=== PATIENT | male | born 1940 ===

== ENCOUNTER 2016-07-24 09:02 | Emergency (ER) | payer MEDICARE, OTHER ==
[2016-07-24 09:16] VITALS: TEMP 98.4; O2SAT 99; BMI 24.0
--- NOTE | 2016-07-24 09:40 | ED PDOC ---
Arrival/HPI - General Time Seen by Provider: 07/24/16 09:19 Historian: Patient - History of Present Illness Narrative History of Present Illness (Text): 07/24/16 09:37 76yo male with PMHx of hypertension, CAD, hydrocephalus BIBA for complaint of clear productive cough x 4days. The by the side states patient was seen by the PMD for the cough and given Robitussin. states taking it without relieve. She reports tactile fever usually at night. Denies chest pain, SOB, FLETCHER, LE edema, night sweats, sick contact, travel. Past Medical History - Travel History Have you recently traveled outside [place] w/in the past 3 mons?: Yes Family/Social History - Physician Review Nursing Documentation Reviewed: Yes Family/Social History: Unknown Family HX Allergies/Home Meds Allergies/Adverse Reactions: Allergies No Known Allergies Allergy (Verified 07/24/16 09:20) Review of Systems - Physician Review All systems were reviewed & negative as marked: Yes - Review of Systems Constitutional: Normal Eyes: Normal ENT: Normal Respiratory: Cough, Sputum. absent: Wheezing Cardiovascular: Normal Gastrointestinal: Normal Genitourinary Male: Normal Musculoskeletal: Normal Skin: Normal Neurological: Normal Endocrine: Normal Hemo/Lymphatic: Normal Psychiatric: Normal Physical Exam Vital Signs Reviewed: Yes Vital Signs Temp Pulse Resp BP Pulse Ox 07/24/16 09:14 98.4 F 62 18 150/79 99 Temperature: Afebrile Blood Pressure: Normal Pulse: Regular Respiratory Rate: Normal Appearance: Positive for: Well-Appearing, Non-Toxic, Comfortable Pain Distress: None Mental Status: Positive for: Alert and Oriented X 3 - Systems Exam Head: Present: Atraumatic, Normocephalic Pupils: Present: PERRL Extroacular Muscles: Present: EOMI Conjunctiva: Present: Normal Mouth: Present: Moist Mucous Membranes Neck: Present: Normal Range of Motion Respiratory/Chest: Present: Clear to Auscultation, Good Air Exchange. No: Respiratory Distress, Accessory Muscle Use, Wheezes, Decreased Breath Sounds, Rales, Retracting, Rhonchi Cardiovascular: Present: Regular Rate and Rhythm, Normal S1, S2. No: Murmurs Abdomen: Present: Normal Bowel Sounds. No: Tenderness, Distention, Peritoneal Signs Back: Present: Normal Inspection Upper Extremity: Present: Normal Inspection. No: Cyanosis, Edema Lower Extremity: Present: Normal Inspection. No: Edema Neurological: Present: GCS=15, CN II-XII Intact, Speech Normal Skin: Present: Warm, Dry, Normal Color. No: Rashes Psychiatric: Present: Alert, Oriented x 3, Normal Insight, Normal Concentration Medical Decision Making ED Course and Treatment: 07/24/16 10:19 Pt biba for cough x 4days. He was afebrile and hemodynamically stable on presentation. His lung was CTA b/l. Chest xray NAD PT was treated with albuterol and antitussive in ED. Will DC home with Promethazine and albuterol. Referred to his PMD. TRT ED for any new or worsening symptoms. - RAD Interpretation Radiology Orders: 07/24/16 09:20 CHEST TWO VIEWS (PA/LAT) [RAD] Stat - Medication Orders Current Medication Orders: Discontinued Medications Albuterol Sulfate (Albuterol 0.083% Inhal Kusum (2.5 Mg/3 Ml) Ud) 2.5 mg IH STAT STA Stop: 07/24/16 09:49 Last Admin: 07/24/16 10:04 Dose: 2.5 mg Promethazine HCl/Codeine (Phenergan/Codeine Oral Syrup) 5 ml PO STAT STA Stop: 07/24/16 09:49 Last Admin: 07/24/16 10:03 Dose: 5 ml Disposition/Present on Arrival - Present on Arrival Any Indicators Present on Arrival: No History of DVT/PE: No History of Uncontrolled Diabetes: No Urinary Catheter: No History of Decub. Ulcer: No History Surgical Site Infection Following: None - Disposition Have Diagnosis and Disposition been Completed?: Yes Diagnosis: Cough Disposition: HOME/ ROUTINE Disposition Time: 10:25 Patient Plan: Discharge Condition: STABLE Discharge Instructions (ExitCare): Acute Cough (ED) Additional Instructions: Follow up with your doctor Return to ED for any new or worsening symptoms Prescriptions: Albuterol HFA [Ventolin HFA 90 mcg/actuation (8 g)] 2 puff IH [id number] #1 puff Promethazine DM [Phenergan DM Oral Syrup] 5 ml PO Q6 #120 dose Referrals: Joyce Orellana MD [Primary Care Provider] - Follow up with primary
[2016-07-24] MEDS ORDERED: Promethazine/Cod 6.25mg-10mg/5ml Syr UD PO STA (09:48)
[2016-07-24] MEDS ORDERED: Albuterol 0.083% Inhal Sol (2.5 mg/3 mL) UD IH STA (09:48)
--- NOTE | 2016-07-24 09:56 | RAD ---
HISTORY: cough COMPARISON: No prior. TECHNIQUE: Chest PA and lateral FINDINGS: LUNGS: No active pulmonary disease. PLEURA: No significant pleural effusion identified. No pneumothorax apparent. CARDIOVASCULAR: Normal. OSSEOUS STRUCTURES: No significant abnormalities. VISUALIZED UPPER ABDOMEN: Normal. OTHER FINDINGS: Sternal wires IMPRESSION: No active disease.
[2016-07-24 11:15] VITALS: BP 148/72; PULSE 61; RESP 17
== END 2016-07-24 11:16 | disposition home or self-care (01) ==
LOC: ED 09:02
DX: R05 Cough (principal)

== ENCOUNTER 2016-09-13 11:09 | Observation (INO) | payer MEDICARE, MEDICAID ==
--- NOTE | 2016-09-13 11:31 | ED PDOC ---
Arrival/HPI - General Chief Complaint: Headache Time Seen by Provider: 09/13/16 11:16 Historian: Patient, Family - History of Present Illness Narrative History of Present Illness (Text): 09/13/16 11:28 Patient is a 76 yo male past medical hx of cad, htn, hydrocephalus, "bloot clot to brain" (as per ), presents to ED for persistent headache and dizziness after sustaining a fall on September 08 in the [facility]. Patient cannot recollect what made him fall several days ago, although states he "fell forward" and that he lost consciousness for several minutes. No associated nausea or visual symptoms. No change in behavior. No neck pain or extremity pain. Denies numbness. Reports dizziness. Denies chest pain or shortness of breath. Patient did not get evaluated by any medical personnel after sustaining fall several days ago. Time/Duration: Other (5 days ago) Symptom Onset: Sudden Past Medical History - Infectious Disease Hx of Infectious Diseases: None - Cardiac Hx Hypotension: Yes - Neurological Hx Headaches: Yes Other/Comment: hydrocephalis. blood clot on brain/removed - Psychiatric Hx Substance Use: No - Surgical History Other/Comment: Blood clot removed from brain. Left knee surgery. bypass surgery Family/Social History Family/Social History: Unknown Family HX Smoking Status: Unknown If Ever Smoked Hx Alcohol Use: No Hx Substance Use: No Allergies/Home Meds Allergies/Adverse Reactions: Allergies No Known Allergies Allergy (Verified 09/13/16 11:26) Home Medications: Home Meds Medication Instructions Recorded Confirmed Aspirin [Aspirin EC] 325 mg PO DAILY 09/13/16 09/13/16 Atorvastatin [Lipitor] 10 mg PO DAILY 09/13/16 09/13/16 Memantine [Namenda] 5 mg PO DAILY 09/13/16 09/13/16 Metoprolol Tartrate [Lopressor] 25 mg PO DAILY 09/13/16 09/13/16 Naproxen [Naprosyn] 500 mg PO DAILY 09/13/16 09/13/16 Oxcarbazepine [Trileptal] 600 mg PO BID 09/13/16 09/13/16 amLODIPine [Norvasc] 5 mg PO DAILY 09/13/16 09/13/16 Review of Systems - Review of Systems Constitutional: Fatigue. absent: Fevers Eyes: absent: Vision Changes ENT: absent: Hearing Changes Respiratory: absent: SOB, Cough Cardiovascular: absent: Chest Pain, FLETCHER Gastrointestinal: absent: Abdominal Pain Genitourinary Male: absent: Dysuria, Hematuria Musculoskeletal: absent: Back Pain, Neck Pain Skin: absent: Rash Neurological: Headache, Dizziness, Disequilibrium. absent: Focal Weakness, Speech Changes, Facial Droop, Seizure Endocrine: absent: Polydipsia Hemo/Lymphatic: absent: Easy Bleeding Physical Exam Vital Signs Reviewed: Yes Vital Signs Temp Pulse Resp BP Pulse Ox 09/13/16 15:45 56 L 18 150/73 99 09/13/16 15:11 97.7 F 62 18 156/84 H 09/13/16 11:29 97.7 F 62 18 156/84 H 100 09/13/16 11:22 97.8 F 61 18 171/95 H 98 Temperature: Afebrile Appearance: Positive for: Well-Appearing, Non-Toxic Pain Distress: Mild Mental Status: Positive for: Alert and Oriented X 3 - Systems Exam Head: Present: Atraumatic, Normocephalic. No: Tenderness, Contusion, Swelling, Ecchymosis, Abrasion, Laceration Pupils: Present: PERRL Extroacular Muscles: Present: EOMI Mouth: Present: Moist Mucous Membranes Pharnyx: No: ERYTHEMA Nose (Internal): Present: Normal Inspection Neck: Present: Normal Range of Motion. No: Meningeal Signs Respiratory/Chest: Present: Clear to Auscultation. No: Respiratory Distress Cardiovascular: Present: Regular Rate and Rhythm Abdomen: Present: Normal Bowel Sounds. No: Tenderness Back: No: CVA Tenderness, Midline Tenderness Upper Extremity: Present: NORMAL PULSES. No: Cyanosis, Edema Lower Extremity: Present: NORMAL PULSES, Neurovascularly Intact. No: Edema, CALF TENDERNESS Neurological: Present: GCS=15, CN II-XII Intact, Speech Normal, Motor Func Grossly Intact, Normal Sensory Function, Normal 2Pt Descrimination Skin: Present: Warm Psychiatric: Present: Alert Medical Decision Making ED Course and Treatment: 09/13/16 11:55 Patient is 76 yo male presents with family reportedly had fall with head injury and LOC several days ago. This occurred in the [facility], patient did not seek medical attention. [place], has had persistent headaches and dizziness, now presents for evaluation. Family describes prior hx of "hydrocephalus" and "blood clot to the brain". Currently denies any chest pain or sob. No focal weakness noted. Plan to obtain Head CT, labs, EKG, serial exams. Report Date : 09/13/2016 12:13:02 PROCEDURE: CT HEAD WITHOUT CONTRAST. Dictator : Jozef Middleton MD IMPRESSION: No intracranial mass, hemorrhage or evidence of acute infarct. Possible communicating hydrocephalus. Mild chronic periventricular white matter ischemic change. Questionable air-fluid level in the sphenoid sinus. This may indicate acute sinusitis and correlation with clinical exam is suggested. Report Date : 09/13/2016 13:23:56 PROCEDURE: CHEST RADIOGRAPH, 1 VIEW Dictator : Roly Harrington MD IMPRESSION: No active disease. Patient re-examined, states headache improved. No fever. No facial swelling. No history of cough or URI symptoms. Medication list reviewed, patient has had prior history of seizures "since blood clot in brain" but none recently. states that when patient passed out she did not witness any seizure activity or postictal symptoms. No incontinence. Patient with no recollection of his episode, states he did not trip and fall or have any preceding symptoms. Plan is to admit patient for serial neurological exams given syncopal episode, and history of hydrocephalus. Discussed with on-call physician Dr. Garzon, accepts admission with consultation with neurology. I discussed treatment plan, ct findings, in depth with patient and family, they are agreeable to treatment plan. 09/13/16 19:22 UTI noted on subsequent review of labs. Patient afebrile, denies abdominal or back pain, denies urinary symptoms. IV rocephin ordered. - Lab Interpretations Lab Results: 09/13/16 12:30 09/13/16 12:30 Lab Results 09/13/16 13:40: Urine Color Light yellow, Urine Appearance Cloudy, Urine pH 6.5 , Ur Specific [place] 1.010, Urine Protein Trace H, Urine Glucose (UA) Negative , Urine Ketones Negative, Urine Blood Trace-intact H, Urine Nitrate Negative, Urine Bilirubin Negative, Urine Urobilinogen 0.2, Ur Leukocyte Esterase Large H , Urine RBC 0 - 2, Urine WBC Tntc, Ur Epithelial Cells 0 - 2, Urine Bacteria Mod 09/13/16 12:30: Triglycerides 261 H, Cholesterol 183, LDL Cholesterol Direct 106 , HDL Cholesterol 46 09/13/16 12:30: Sodium 136, Potassium 3.6, Chloride 98, Carbon Dioxide 30, Anion Gap 12, BUN 12, Creatinine 0.8, Est GFR ( Amer) > 60, Est GFR (Non- Af Amer) > 60, Random Glucose 69 L, Calcium 9.0, Total Bilirubin 0.5, AST 30, ALT 39, Alkaline Phosphatase 63, Lactate Dehydrogenase 531, Total Creatine Kinase 145, Troponin I 0.02, Total Protein 7.7, Albumin 4.4, Globulin 3.3, Albumin/Globulin Ratio 1.3 09/13/16 12:30: PT 10.3, INR 0.95, APTT 27.8 09/13/16 12:30: WBC 8.4, RBC 4.86, Hgb 13.9 L, Hct 41.1 L, MCV 84.6, MCH 28.6, MCHC 33.8, RDW 13.8, Plt Count 204, MPV 8.4, Gran % 56.0, Lymph % (Auto) 33.6, Bowman % (Auto) 7.2 H, Eos % (Auto) 2.8, Baso % (Auto) 0.4, Gran # 4.69, Lymph # 2.8, Bowman # 0.6, Eos # 0.2, Baso # 0.03 09/13/16 11:57: POC Glucose (mg/dL) 82 - RAD Interpretation Radiology Orders: 09/13/16 11:27 HEAD W/O CONTRAST [CT] Stat CHEST ONE VIEW [RAD] Stat - EKG Interpretation EKG Interpretation (Text): 09/13/16 19:20 EKG at 12:02 sinus bradycardia rate of 59 Interpreted by ED Physician: Yes Type: 12 lead EKG - Medication Orders Current Medication Orders: Acetaminophen/Butalbital/Caffeine (Fioricet) 1 tab PO Q6H PRN PRN Reason: Headache Amlodipine Besylate (Norvasc) 5 mg PO DAILY [facility] Last Admin: 09/13/16 18:45 Dose: 5 mg Aspirin (Ecotrin) 325 mg PO DAILY [facility] Last Admin: 09/13/16 18:40 Dose: 325 mg Atorvastatin Calcium (Lipitor) 10 mg PO DAILY [facility] Ceftriaxone Sodium (Rocephin 1 Gram Ivpb) 1 gm in 100 mls @ 100 mls/hr IVPB DAILY [facility] PRN Reason: Protocol Last Admin: 09/13/16 18:40 Dose: 100 mls/hr Memantine (Namenda) 5 mg PO DAILY [facility] Last Admin: 09/13/16 18:40 Dose: 5 mg Metoprolol Tartrate (Lopressor) 25 mg PO DAILY [facility] Last Admin: 09/13/16 18:44 Dose: 25 mg Naproxen (Anaprox Ds) 550 mg PO DAILY PRN PRN Reason: Pain, Mild (1-3) Oxcarbazepine (Trileptal) 600 mg PO BID [facility] PRN Reason: Protocol Last Admin: 09/13/16 18:40 Dose: 600 mg Discontinued Medications Pneumococcal Polyvalent Vaccine (Pneumovax 23 Vaccine) 0.5 ml IM .ONCE ONE Stop: 09/13/16 15:26 Last Admin: 09/13/16 15:51 Dose: 0.5 ml Disposition/Present on Arrival - Present on Arrival Any Indicators Present on Arrival: No History of DVT/PE: No History of Uncontrolled Diabetes: No Urinary Catheter: No History of Decub. Ulcer: No History Surgical Site Infection Following: None - Disposition Have Diagnosis and Disposition been Completed?: Yes Diagnosis: Syncope, Hydrocephalus, UTI (urinary tract infection) Disposition: HOSPITALIZED Disposition Time: 14:00 Patient Plan: Admission, Telemetry Patient Problems: Current Active Problems Problem Status Onset Hydrocephalus Acute Syncope Acute UTI (urinary tract infection) Acute Condition: FAIR
--- NOTE | 2016-09-13 12:18 | CT ---
PROCEDURE: CT HEAD WITHOUT CONTRAST. HISTORY: headache, loc COMPARISON: None available. TECHNIQUE: Axial computed tomography images were obtained through the head/brain without intravenous contrast. Radiation dose: Total exam DLP = 871.01 mGy-cm. This CT exam was performed using one or more of the following dose reduction techniques: Automated exposure control, adjustment of the mA and/or kV according to patient size, and/or use of iterative reconstruction technique. FINDINGS: HEMORRHAGE: No intracranial hemorrhage. BRAIN: No mass effect or edema. Moderate diffuse atrophy consistent with patient age. Mild periventricular white matter lucency consistent with chronic microvascular ischemic change. VENTRICLES: Ventricular dilatation mildly at a portion to the degree of surrounding atrophy. There is dilatation of the 3rd and lateral ventricles. Findings may reflect communicating hydrocephalus. There is only mild dilatation of the temporal horn of right lateral ventricle. The left temporal horn is not dilated. Significance of this finding is uncertain. There is no midline shift. CALVARIUM: Old right frontal craniotomy. No acute fracture. PARANASAL SINUSES: Mucosal thickening in the sphenoid sinus. Questionable air-fluid level in sphenoid sinus may indicate acute sinusitis. Please correlate clinically. MASTOID AIR CELLS: Unremarkable as visualized. No inflammatory changes. OTHER FINDINGS: None. IMPRESSION: No intracranial mass, hemorrhage or evidence of acute infarct. Possible communicating hydrocephalus. Mild chronic periventricular white matter ischemic change. Questionable air-fluid level in the sphenoid sinus. This may indicate acute sinusitis and correlation with clinical exam is suggested.
[2016-09-13 12:44] LABS: BASO # 0.03 K/mm3 (0.0-2.0); BASO % 0.4 % (0.0-3.0); EOS # 0.2 (0.0-0.7); EOS % 2.8 % (1.5-5.0); GRAN # 4.69 (1.4-6.5); HEMOGLOBIN 13.9 gm/dL (14.0-18.0); LYMPH # 2.8 (1.2-3.4); LYMPH % 33.6 % (22.0-35.0); MEAN CELL VOLUME 84.6 fL (80.0-105.0); MEAN CORPUSCULAR HEMOGLOBIN 28.6 pg (25.0-35.0); MEAN CORPUSCULAR HGB CONC 33.8 g/dl (31.0-37.0); MEAN PLATELET VOLUME 8.4 fl (7.0-11.0); MONO # 0.6 (0.1-0.6); MONO % 7.2 % (1.0-6.0); PLATELET COUNT 204 10^3/uL (120.0-450.0); RBC 4.86 10^6/uL (3.5-6.1); RED CELL DISTRIBUTION WIDTH 13.8 % (11.5-14.5); WHITE BLOOD COUNT 8.4 10^3/ul (4.5-11.0)
[2016-09-13 12:52] LABS: INR 0.95 (0.93-1.08); PARTIAL THROMBOPLASTIN TIME 27.8 Seconds (23.7-30.8); PROTHROMBIN TIME 10.3 Seconds (9.9-11.8)
[2016-09-13 12:59] LABS: ALB/GLOB RATIO 1.3 (1.1-1.8); ALBUMIN 4.4 g/dL (3.0-4.8); ALT/SGPT 39 U/L (7-56); AST/SGOT 30 U/L (15-59); BLOOD UREA NITROGEN 12 mg/dL (7-21); GFR AFRICAN-AMERICAN > 60; GFR NON-AFRICAN AMERICAN > 60
[2016-09-13 13:11] LABS: TROPONIN I 0.02 ng/mL
--- NOTE | 2016-09-13 13:25 | RAD ---
PROCEDURE: CHEST RADIOGRAPH, 1 VIEW HISTORY: headache, loc COMPARISON: None available. FINDINGS: LUNGS: Clear. PLEURA: No pneumothorax or pleural fluid seen. CARDIOVASCULAR: Normal. OSSEOUS STRUCTURES: No significant abnormalities. VISUALIZED UPPER ABDOMEN: Normal. OTHER FINDINGS: None. IMPRESSION: No active disease.
[2016-09-13 13:50] LABS: PH,URINE 6.5 (4.7-8.0); URINE BILIRUBIN NEGATIVE (NEGATIVE); URINE BLOOD TRACE-INTACT (NEGATIVE); URINE GLUCOSE (UA) NEGATIVE (NEGATIVE); URINE LEUKOCYTE ESTERASE LARGE Leu/uL (NEGATIVE); URINE NITRATE NEGATIVE (NEGATIVE); URINE PROTEIN TRACE mg/dL (<30 mg/dL); URINE UROBILINOGEN 0.2 E.U./dL (<1 E.U./dL)
[2016-09-13 13:51] LABS: URINE APPEARANCE CLOUDY (CLEAR); URINE COLOR LIGHT YELLOW (YELLOW)
[2016-09-13 14:08] LABS: URINE BACTERIA MOD (NEG); URINE EPITHELIAL CELLS 0 - 2 /hpf (0-5); URINE RBC 0 - 2 /hpf (0-2); URINE WBC TNTC /hpf (0-6)
[2016-09-13 15:25] VITALS: BMI 24.2
[2016-09-13] MEDS ORDERED: Pneumococcal 23-Valent Vaccine IM ONE (15:25)
--- NOTE | 2016-09-13 17:13 | CP.PCM.CON ---
<Yunier Marvin - Last Filed: 09/13/16 17:00> History of Present Illness - History of Present Illness History of Present Illness: PGY-[address] Gonzalez's Neurology Service: Reason for Consultation:Syncope This is a 76 year old male with PMHx CAD s/p CABG, Hydrocephalus, HTN, hypercholesterolemia who presented to the hospital for evaluation after sustaining a fall on 09/08/16 while in the [facility]. According to the ED note, the stated that the patient fell forward and had LOC for several minutes. Patient himself stated that he was getting up to use the bathroom when he felt dizzy and unbalanced. He states that he fell and did not have LOC at the time. He denies CP, palpitations, weakness, numbing, or tingling at the time. Patient does not have any complaints presently and denied the aforementioned symptoms at time of encounter. Patient also reports that he does not have a headache. Patient reports chronic issues with memory. PMHx: CAD s/p CABG, hydrocephalus, HTN, hypercholesterolemia. As per EMR, stated that he had "a blood clot" in the brain with surgery to remove it. PSHx: CABG, Unspecified left knee surgery Allergies: NKDA Social: Former smoker began at age 17. Drinks socially. Denies drug use. Review of Systems - Constitutional Constitutional: absent: Headache, Weakness - EENT Eyes: absent: Change in Vision Ears: absent: Decreased Hearing - Cardiovascular Cardiovascular: absent: Chest Pain, Syncope - Respiratory Respiratory: absent: Dyspnea - Gastrointestinal Gastrointestinal: absent: Abdominal Pain - Genitourinary Genitourinary: absent: Dysuria - Musculoskeletal Musculoskeletal: absent: Neck Pain - Neurological Neurological: Memory Loss (chronic). absent: Dizziness, Headaches, Weakness Past Patient History - Infectious Disease Hx of Infectious Diseases: None - Past Social History Smoking Status: Never Smoked - CARDIAC Hx Hypercholesterolemia: Yes Hx Hypertension: Yes Other/Comment: triple bypass sx 2000 - NEUROLOGICAL Hx Neurological Disorder: (headaches) Other/Comment: hydrocephalis. blood clot on brain/removed 2008 - INTEGUMENTARY Other/Comment: surgical scar med chest, multiple surgical scar from triple bypass sx to right inner leg, scars from varicose vein sx both legs - MUSCULOSKELETAL/RHEUMATOLOGICAL Hx Falls: Yes (fell 09/08/16) - PSYCHIATRIC Hx Substance Use: No - SURGICAL HISTORY Other/Comment: Blood clot removed from brain 2008. Left knee surgery due to fx playing baseball has screw, triple bypass 2000, sx for varicose veins both legs Meds Allergies/Adverse Reactions: Allergies Allergy/AdvReac Type Severity Reaction Status Date / Time No Known Allergies Allergy Verified 09/13/16 11:26 Physical Exam - Constitutional Appears: Non-toxic, No Acute Distress - Head Exam Head Exam: ATRAUMATIC, NORMAL INSPECTION, NORMOCEPHALIC - Eye Exam Eye Exam: EOMI, PERRL - ENT Exam ENT Exam: Mucous Membranes Moist - Respiratory Exam Respiratory Exam: Clear to Auscultation Bilateral - Cardiovascular Exam Cardiovascular Exam: REGULAR RHYTHM - GI/Abdominal Exam GI & Abdominal Exam: Normal Bowel Sounds, Soft - Neurological Exam Neurological exam: Abnormal Gait (swaying gait), Alert, CN II-XII Intact, Oriented x3 - Expanded Neurological Exam Expanded Cranial nerves: EOM's Intact: Normal, Facial Sensation: Normal, Tongue Deviation : Normal Cerebellar Function: Finger to Nose: Normal, Romberg: Normal Upper motor neuron: Babinski Sign: Normal, Pronator Drift: Normal Sensory exam: Lower Extremity Light Touch: Normal, Upper Extremity Light Touch: Normal Neuro motor strength exam: Left Upper Extremity: 5, Right Upper Extremity: 5, Left Lower Extremity: 5, Right Lower Extremity: 5 DTR: Achilles Tendon Left: 1+, Achilles Tendon Right: 1+, Bicep Left: 1+, Bicep Right: 1+, Brachioradialis Left: 1+, Brachioradialis Right: 1+, Patellar Left: 1 +, Patellar Right: 1+, Tricep Left: 1+, Tricep Right: 1+ - Skin Skin Exam: Intact Results - Vital Signs Recent Vital Signs: Last Vital Signs Temp 97.7 F 09/13/16 15:11 Pulse 56 L 09/13/16 15:45 Resp 18 09/13/16 15:45 BP 150/73 09/13/16 15:45 Pulse Ox 99 09/13/16 15:45 - Labs Result Diagrams: 09/13/16 12:30 09/13/16 12:30 Assessment & Plan - Assessment and Plan (Free Text) Assessment: This is a 76 year old male with PMHx CAD s/p CABG, Hydrocephalus, HTN, hypercholesterolemia who presented to the hospital for evaluation after sustaining a fall on 09/08/16. This is likely due to unsteady gait secondary to hydrocephalus, but patient is neurologically stable in terms of muscle strength and sensory exam. Plan: 1) Recommend PT evaluation for unsteady gait. 2) Head CT revealed dilated ventricles indicating possible communicating hydrocephalus. 3) Patient is presently neurologically stable in terms of muscle strength and sensory exam. 4) Hydrocephalus will need to be monitored with serial MRI every 6 months. 5) Fioricet 1 tab Q6H PRN headache Case Discussed with Dr. Carlos Marvin, PGY-1 - Date & Time Date: 09/13/16 Time: 17:00 <John Gonzalez - Last Filed: 09/14/16 16:17> Meds - Medications Medications: Current Medications Acetaminophen/Butalbital/Caffeine (Fioricet) 1 tab PO Q6H PRN PRN Reason: Headache Amlodipine Besylate (Norvasc) 5 mg PO DAILY [facility] Last Admin: 09/14/16 09:06 Dose: 5 mg Aspirin (Ecotrin) 325 mg PO DAILY [facility] Last Admin: 09/14/16 09:06 Dose: 325 mg Atorvastatin Calcium (Lipitor) 10 mg PO DAILY [facility] Last Admin: 09/14/16 09:07 Dose: 10 mg Ceftriaxone Sodium (Rocephin 1 Gram Ivpb) 1 gm in 100 mls @ 100 mls/hr IVPB DAILY [facility] PRN Reason: Protocol Last Admin: 09/14/16 09:08 Dose: 100 mls/hr Memantine (Namenda) 5 mg PO DAILY [facility] Last Admin: 09/14/16 09:07 Dose: 5 mg Metoprolol Tartrate (Lopressor) 25 mg PO DAILY [facility] Last Admin: 09/14/16 09:06 Dose: 25 mg Naproxen (Anaprox Ds) 550 mg PO DAILY PRN PRN Reason: Pain, Mild (1-3) Oxcarbazepine (Trileptal) 600 mg PO BID [facility] PRN Reason: Protocol Last Admin: 09/14/16 09:07 Dose: 600 mg Results - Vital Signs Recent Vital Signs: Last Vital Signs Temp 98.2 F 09/14/16 06:00 Pulse 54 L 09/14/16 14:00 Resp 20 09/14/16 06:00 BP 139/79 09/14/16 09:06 Pulse Ox 96 07/07/17 06:00 - Labs Result Diagrams: 09/14/16 05:30 09/14/16 05:30 Labs: Laboratory Results - last 24 hr 09/14/16 09/14/16 09/14/16 05:30 05:30 05:30 WBC RBC Hgb Hct MCV MCH MCHC RDW Plt Count MPV Sodium 136 Potassium 3.5 L Chloride 98 Carbon Dioxide 26 Anion Gap 16 BUN 16 Creatinine 0.8 Est GFR ( Amer) > 60 Est GFR (Non-Af Amer) > 60 Random Glucose 106 Hemoglobin A1c 6.0 Calcium 9.0 Magnesium 2.2 Total Bilirubin 0.3 AST 27 ALT 44 Alkaline Phosphatase 74 Total Protein 7.5 Albumin 4.5 Globulin 3.1 Albumin/Globulin Ratio 1.5 Free T4 0.97 TSH 3rd Generation 1.46 09/14/16 05:30 WBC 10.5 D RBC 5.15 Hgb 14.4 Hct 43.1 MCV 83.7 MCH 28.0 MCHC 33.4 RDW 13.8 Plt Count 203 MPV 8.4 Sodium Potassium Chloride Carbon Dioxide Anion Gap BUN Creatinine Est GFR ( Amer) Est GFR (Non-Af Amer) Random Glucose Hemoglobin A1c Calcium Magnesium Total Bilirubin AST ALT Alkaline Phosphatase Total Protein Albumin Globulin Albumin/Globulin Ratio Free T4 TSH 3rd Generation Attending/Attestation - Attestation I have personally seen and examined this patient.: Yes I have fully participated in the care of the patient.: Yes I have reviewed all pertinent clinical information: Yes
[2016-09-13] MEDS ORDERED: Apap-Butalbital-Caffeine 325-50-40mg Tab PO PRN (17:53)
[2016-09-13] MEDS ORDERED: Naproxen 550 mg Tab PO PRN (18:09)
[2016-09-13 18:27] LABS: HDL CHOLESTEROL 46 mg/dL (29-60)
[2016-09-13 18:38] LABS: LDL CHOLESTEROL 106 mg/dL (0-129)
[2016-09-13] MEDS: cefTRIAXone 1 gm 1 GM/100 ML BAG IVPB SCH (18:40)
[2016-09-13] MEDS: Aspirin 325 mg EC Tablets PO SCH (18:40)
[2016-09-14 00:06] VITALS: RESP 20
[2016-09-14 06:16] VITALS: O2SAT 96
[2016-09-14 07:10] LABS: HEMOGLOBIN 14.4 gm/dL (14.0-18.0); MEAN CELL VOLUME 83.7 fL (80.0-105.0); MEAN CORPUSCULAR HGB CONC 33.4 g/dl (31.0-37.0); MEAN PLATELET VOLUME 8.4 fl (7.0-11.0); RBC 5.15 10^6/uL (3.5-6.1); RED CELL DISTRIBUTION WIDTH 13.8 % (11.5-14.5); WHITE BLOOD COUNT 10.5 10^3/ul (4.5-11.0)
[2016-09-14 07:29] LABS: ALB/GLOB RATIO 1.5 (1.1-1.8); ALBUMIN 4.5 g/dL (3.0-4.8); ALT/SGPT 44 U/L (7-56); AST/SGOT 27 U/L (15-59); BLOOD UREA NITROGEN 16 mg/dL (7-21); GFR AFRICAN-AMERICAN > 60; GFR NON-AFRICAN AMERICAN > 60; MAGNESIUM 2.2 mg/dL (1.7-2.2)
[2016-09-14 07:40] LABS: FREE T4 0.97 ng/dL (0.78-2.19)
[2016-09-14] MEDS: Aspirin 325 mg EC Tablets PO SCH (09:06)
[2016-09-14] MEDS: cefTRIAXone 1 gm 1 GM/100 ML BAG IVPB SCH (09:08)
--- NOTE | 2016-09-14 10:12 | CARD ---
APPROVED REPORT EKG Measurement Heart [id number] <Conclusion> Sinus bradycardia Otherwise normal ECG
--- NOTE | 2016-09-14 11:53 | US ---
PROCEDURE: Bilateral carotid artery duplex ultrasound HISTORY: Carotid stenosis PHYSICIAN(S): Jozef Farmer MD. TECHNIQUE: Duplex sonography and color-flow Doppler were used to evaluate the carotid bifurcations and limited segments of the vertebral arteries bilaterally. FINDINGS: There is mild smooth heterogeneous echogenic plaque noted at the carotid bifurcations bilaterally. The peak systolic velocity in the proximal right internal carotid artery is 45 cm/sec. This corresponds to a 20 to 39% proximal right ICA stenosis. Normal systolic velocities are noted in the proximal right external carotid artery. There is antegrade flow in the right vertebral artery. The peak systolic velocity in the proximal left internal carotid artery is 61 cm/sec. This corresponds to a 20 to 39% proximal left ICA stenosis. Normal systolic velocities are noted in the proximal left external carotid artery. There is antegrade flow in the left vertebral artery. IMPRESSION: 1. Bilateral 20-39% proximal ICA stenoses. 2. Antegrade flow in both vertebral arteries.
[2016-09-14 18:24] VITALS: BP 136/76; PULSE 60; TEMP 97.6
== END 2016-09-14 20:10 | disposition home or self-care (01) ==
LOC: ED 11:09 → ERH 13:59 → 2RSO 16:01
PROVIDERS: ADMIT Internal Medicine; ATTEND Internal Medicine
DX: R55 Syncope and collapse (principal); G91.9 Hydrocephalus, unspecified; N39.0 Urinary tract infection, site not specified; I10 Essential (primary) hypertension; E78.00 Pure hypercholesterolemia, unspecified; I25.10 Atherosclerotic heart disease of native coronary artery without angina pectoris; Z95.1 Presence of aortocoronary bypass graft; Z87.891 Personal history of nicotine dependence; Z79.82 Long term (current) use of aspirin; Z23 Encounter for immunization
CPT/HCPCS: 36415; 70450; 71010; 80053; 80061; 81001; 82550; 82948; 83036; 83615; 83735; 84439; 84443; 84484; 85025; 85027; 85610; 85730; 90732; 93005; 93880; 97116; 97161; 99285; G0009; G0378; G8978; G8979; G8980; J0696

== ENCOUNTER 2017-05-14 13:40 | Emergency (ER) | payer MEDICAID, MEDICARE ==
[2017-05-14 14:04] VITALS: BMI 24.7
--- NOTE | 2017-05-14 14:10 | ED PDOC ---
Arrival/HPI - General Time Seen by Provider: 05/14/17 13:46 Historian: Patient, Spouse - History of Present Illness Narrative History of Present Illness (Text): 77 year old male, whose PMH includes hypertension and hydrocephalus, who presents to the emergency department complaining of an intermittent bi-temporal headache associated with being confused since one day ago. Family reports patient was confused yesterday when trying to figure out where he lives which resolved after some time. Patient describes the pain as being sharp, nonradiating and partner notes giving him 2 Tylenol's with no significant relief. Patient denies trauma, abdominal pain, shortness of breath, chest pain, neck pain, or other complaints, numbness, weakness, vision change, facial droop. Time/Duration: 24 hours Symptom Onset: Sudden Symptom Course: Intermittent Quality: Other (sharp) Context: Home Past Medical History - Provider Review Nursing Documentation Reviewed: Yes - Infectious Disease Hx of Infectious Diseases: None - Cardiac Hx Hypertension: Yes - Neurological Hx Headaches: Yes Other/Comment: hydrocephalis. blood clot on brain/removed - Integumentary Other/Comment: surgical scar med chest, multiple surgical scar from triple bypass sx to right inner leg, scars from varicose vein sx both legs - Musculoskeletal/Rheumatological Hx Falls: Yes (fell 09/08/16) - Psychiatric Hx Substance Use: No - Surgical History Other/Comment: Blood clot removed from brain. Left knee surgery. bypass surgery Family/Social History - Physician Review Nursing Documentation Reviewed: Yes Family/Social History: Unknown Family HX Smoking Status: Unknown If Ever Smoked Hx Alcohol Use: No Hx Substance Use: No Allergies/Home Meds Allergies/Adverse Reactions: Allergies No Known Allergies Allergy (Verified 09/13/16 11:26) Home Medications: Home Meds Medication Instructions Recorded Confirmed Aspirin [Aspirin EC] 325 mg PO DAILY 09/13/16 05/14/17 Atorvastatin [Lipitor] 10 mg PO DAILY 09/13/16 05/14/17 Metoprolol Tartrate [Lopressor] 25 mg PO DAILY 09/13/16 05/14/17 Oxcarbazepine [Trileptal] 600 mg PO BID 09/13/16 05/14/17 amLODIPine [Norvasc] 5 mg PO DAILY 09/13/16 05/14/17 Review of Systems - Physician Review All systems were reviewed & negative as marked: Yes - Review of Systems Constitutional: absent: Fevers Cardiovascular: absent: Chest Pain Neurological: Headache, Gait Changes. absent: Focal Weakness, Facial Droop Physical Exam - Physical Exam Narrative Physical Exam (Text): 05/14/17 Constitutional: No acute distress. Head: Normocephalic. Atraumatic. Eyes: PERRL. ENT: Moist mucous membranes. Neck: Supple. Cardiovascular: Regular rate. Chest: No tenderness. Respiratory: Clear to auscultation bilaterally. GI: Soft. Nontender. Nondistended. Back: No CVA tenderness. Musculoskeletal: No tenderness or swelling of extremities. Skin: No rash. Neurologic: Alert and Oriented x 2. CN II-XII Intact. (+) Unsteady gait. Normal Rhomberg. Sensation to light touch intact bilateral. Vital Signs Temp Pulse Resp BP Pulse Ox 05/14/17 14:12 98.4 F 68 16 160/77 H 99 Appearance: Positive for: Well-Appearing, Non-Toxic, Comfortable Pain Distress: None Mental Status: No: Alert and Oriented X 3 (alert and oriented x 2) Medical Decision Making ED Course and Treatment: 05/14/17 Impression: 77 year old male with CN II-XII Intact. (+) Unsteady gait. Normal Rhomberg. Sensation to light touch intact bilateral complaining of headache since one day. Plan: -- Labs -- CT Head -- Reassess and disposition Progress Notes: 05/14/17 14:55 CT Head IMPRESSION: No acute findings. Chronic hydrocephalus 05/14/17 14:59 CXR FINDINGS: LUNGS: No active pulmonary disease. PLEURA: No significant pleural effusion identified, no pneumothorax apparent. CARDIOVASCULAR: Normal. OSSEOUS STRUCTURES: Sternal wires VISUALIZED UPPER ABDOMEN: Normal. OTHER FINDINGS: None. IMPRESSION: No active disease. CXR no acute disease. Labs unremarkable. Discussed case with Dr. Cabral neurologist at [facility] who states patient can follow up with him in office soon and no further management indicated at this time. 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 - Lab Interpretations Lab Results: 05/14/17 14:25 05/14/17 14:25 Lab Results 05/14/17 14:25: Urine Opiates Screen Negative, Urine Methadone Screen Negative, Ur Barbiturates Screen Negative, Ur Phencyclidine Scrn Negative, Ur Amphetamines Screen Negative, U Benzodiazepines Scrn Negative, U Oth Cocaine Metabols Negative, U Cannabinoids Screen Negative 05/14/17 14:25: Sodium 140, Potassium 4.5, Chloride 98, Carbon Dioxide 31, Anion Gap 16, BUN 9, Creatinine 0.7 L, Est GFR ( Amer) > 60, Est GFR (Non -Af Amer) > 60, Random Glucose 99, Calcium 9.8, Total Bilirubin 0.5, AST 22, ALT 44, Alkaline Phosphatase 52, Total Protein 7.7, Albumin 4.7, Globulin 3.0, Albumin/Globulin Ratio 1.6 05/14/17 14:25: Urine Color Straw, Urine Appearance Clear, Urine pH 7.0, Ur Specific Monroe 1.015, Urine Protein Negative, Urine Glucose (UA) Negative, Urine Ketones Negative, Urine Blood Trace-intact H, Urine Nitrate Negative, Urine Bilirubin Negative, Urine Urobilinogen 0.2, Ur Leukocyte Esterase Negative , Urine RBC 0 - 2, Urine WBC 0 - 2, Ur Epithelial Cells 0 - 2, Urine Bacteria Trace 05/14/17 14:25: WBC 7.6 D, RBC 4.89, Hgb 14.1, Hct 42.5, MCV 86.9, MCH 28.8, MCHC 33.2, RDW 13.7, Plt Count 166, MPV 8.8, Gran % 51.3, Lymph % (Auto) 40.0 H , Calvert % (Auto) 6.9 H, Eos % (Auto) 1.7, Baso % (Auto) 0.1, Gran # 3.88, Lymph # (Auto) 3.0, Calvert # (Auto) 0.5, Eos # (Auto) 0.1, Baso # (Auto) 0.01 - RAD Interpretation Radiology Orders: 05/14/17 14:04 HEAD W/O CONTRAST [CT] Stat CHEST PORTABLE [RAD] Stat - Scribe Statement The provider has reviewed the documentation as recorded by the Vipin Rawls Provider Scribe Attestation: All medical record entries made by the Scribe were at my direction and personally dictated by me. I have reviewed the chart and agree that the record accurately reflects my personal performance of the history, physical exam, medical decision making, and the department course for this patient. I have also personally directed, reviewed, and agree with the discharge instructions and disposition. Disposition/Present on Arrival - Present on Arrival Any Indicators Present on Arrival: No History of DVT/PE: No History of Uncontrolled Diabetes: No Urinary Catheter: No History Surgical Site Infection Following: None - Disposition Have Diagnosis and Disposition been Completed?: Yes Diagnosis: Hydrocephalus Disposition: HOME/ ROUTINE Disposition Time: 15:41 Patient Plan: Discharge Patient Problems: Current Active Problems Problem Status Onset Hydrocephalus Acute Condition: STABLE Discharge Instructions (ExitCare): Hydrocephalus, Seizures, Adult (DC) Additional Instructions: Follow up with Dr. Cabral. Referrals: Joyce Orellana MD [Primary Care Provider] - Follow up with primary
[2017-05-14 14:13] VITALS: BP 160/77; PULSE 68; RESP 16; TEMP 98.4; O2SAT 99
[2017-05-14 14:49] LABS: BASO # 0.01 K/mm3 (0.0-2.0); BASO % 0.1 % (0.0-3.0); EOS # 0.1 (0.0-0.7); EOS % 1.7 % (1.5-5.0); GRAN # 3.88 (1.4-6.5); GRAN % 51.3 % (50.0-68.0); HEMOGLOBIN 14.1 g/dL (14.0-18.0); MEAN CELL VOLUME 86.9 fl (80.0-105.0); MEAN CORPUSCULAR HEMOGLOBIN 28.8 pg (25.0-35.0); MEAN CORPUSCULAR HGB CONC 33.2 g/dl (31.0-37.0); MEAN PLATELET VOLUME 8.8 fl (7.0-11.0); MONO # 0.5 (0.1-0.6); MONO % 6.9 % (1.0-6.0); RBC 4.89 10^6/uL (3.5-6.1); RED CELL DISTRIBUTION WIDTH 13.7 % (11.5-14.5); WHITE BLOOD COUNT 7.6 10^3/ul (4.5-11.0)
--- NOTE | 2017-05-14 14:54 | CT ---
PROCEDURE: CT HEAD WITHOUT CONTRAST. HISTORY: headache, confusion COMPARISON: 09/13/2016 CT TECHNIQUE: Axial computed tomography images were obtained through the head/brain without intravenous contrast. Radiation dose: Total exam DLP = 873 mGy-cm. This CT exam was performed using one or more of the following dose reduction techniques: Automated exposure control, adjustment of the mA and/or kV according to patient size, and/or use of iterative reconstruction technique. FINDINGS: HEMORRHAGE: No intracranial hemorrhage. BRAIN: No mass effect or edema. Atrophy. No acute findings VENTRICLES: There is chronic hydrocephalus which may be due to a normal pressure hydrocephalus. CALVARIUM: Unremarkable. PARANASAL SINUSES: Unremarkable as visualized. No significant inflammatory changes. MASTOID AIR CELLS: Unremarkable as visualized. No inflammatory changes. OTHER FINDINGS: None. IMPRESSION: No acute findings. Chronic hydrocephalus
[2017-05-14 14:58] LABS: URINE BILIRUBIN NEGATIVE (NEGATIVE); URINE BLOOD TRACE-INTACT (NEGATIVE); URINE GLUCOSE (UA) NEGATIVE (NEGATIVE); URINE LEUKOCYTE ESTERASE NEGATIVE Leu/uL (NEGATIVE); URINE NITRATE NEGATIVE (NEGATIVE); URINE PROTEIN NEGATIVE mg/dL (<30 mg/dL); URINE UROBILINOGEN 0.2 E.U./dL (<1 E.U./dL)
[2017-05-14 14:59] LABS: URINE APPEARANCE CLEAR (CLEAR); URINE COLOR STRAW (YELLOW)
--- NOTE | 2017-05-14 14:59 | RAD ---
HISTORY: confusion COMPARISON: 09/13/2016 FINDINGS: LUNGS: No active pulmonary disease. PLEURA: No significant pleural effusion identified, no pneumothorax apparent. CARDIOVASCULAR: Normal. OSSEOUS STRUCTURES: Sternal wires VISUALIZED UPPER ABDOMEN: Normal. OTHER FINDINGS: None. IMPRESSION: No active disease.
[2017-05-14 15:02] LABS: ALB/GLOB RATIO 1.6 (1.1-1.8); ALBUMIN 4.7 g/dL (3.0-4.8); ALT/SGPT 44 U/L (7-56); AST/SGOT 22 U/L (17-59); BLOOD UREA NITROGEN 9 mg/dL (7-21); CALCIUM 9.8 mg/dL (8.4-10.5); GFR AFRICAN-AMERICAN > 60; GFR NON-AFRICAN AMERICAN > 60
[2017-05-14 15:12] LABS: BARBITURATES, UR NEGATIVE (NEGATIVE); BENZODIAZEPINES, UR NEGATIVE (NEGATIVE); OPIATES, UR NEGATIVE (NEGATIVE); PHENCYCLIDINE, UR NEGATIVE (NEGATIVE)
[2017-05-14 15:15] LABS: URINE BACTERIA TRACE (NEG); URINE EPITHELIAL CELLS 0 - 2 /hpf (0-5); URINE RBC 0 - 2 /hpf (0-2); URINE WBC 0 - 2 /hpf (0-6)
== END 2017-05-14 16:01 | disposition home or self-care (01) ==
LOC: ED 13:40
DX: G91.9 Hydrocephalus, unspecified (principal); I10 Essential (primary) hypertension
CPT/HCPCS: 70450; 71045; 80053; 81001; 85025; 99285; G0480

== ENCOUNTER 2017-06-01 13:07 | Emergency (ER) | payer MEDICARE, MEDICAID ==
[2017-06-01 13:07] VITALS: BMI 24.7
[2017-06-01 13:18] VITALS: TEMP 97.8
[2017-06-01 13:24] VITALS: RESP 18
[2017-06-01] MEDS ORDERED: TDAP Vaccine 0.5 mL Syr IM ONE (14:06)
--- NOTE | 2017-06-01 14:07 | ED PDOC ---
Arrival/HPI - General Historian: Patient, Spouse - History of Present Illness Time/Duration: Prior to Arrival Symptom Onset: Sudden Symptom Course: Unchanged Activities at Onset: Other (walking on the streets) Context: Walking - General Chief Complaint: Trauma Time Seen by Provider: 06/01/17 14:04 - History of Present Illness Narrative History of Present Illness (Text): 06/01/17 14:05 pt presents with + trip and fall just prior to ED arrival; pt states they were walking on the streets outside of their home and his foot got stuck on the road and he subsequently fell; he was wearing a baseball hat at the time and didnt think his head struck the pavement, + left knee contusion, + left hand injury with blood noted to left thumb; pt states + left thumb pain; no LOC pre/post fall; pt states no fever/chills/sweats, no cp/sob/palpitations, no abd pain, no n/v, no numbness/tingling, no urinary/bowel changes, no incontinence. pt currently + mild headache, + dizziness pt denied seizure activities pt is here for further eval pt's without other complaints tetanus: unknown pt lives with spouse (Demian Garcia) Past Medical History - Provider Review Nursing Documentation Reviewed: Yes - Travel History Have you recently traveled outside [place] w/in the past 3 mons?: No - Past History Past History: No Previous - Infectious Disease Hx of Infectious Diseases: None - Cardiac Hx Hypertension: Yes - Pulmonary Hx Respiratory Disorders: No - Neurological Hx Headaches: Yes Other/Comment: hydrocephalis. 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 Left knee surgery. bypass surgery Family/Social History - Physician Review Nursing Documentation Reviewed: Yes Family/Social History: No Known Family HX Smoking Status: Unknown If Ever Smoked Hx Alcohol Use: No Hx Substance Use: No Hx Substance Use Treatment: No Allergies/Home Meds Allergies/Adverse Reactions: Allergies No Known Allergies Allergy (Verified 06/01/17 13:15) Home Medications: Home Meds Medication Instructions Recorded Confirmed Aspirin [Aspirin EC] 325 mg PO DAILY 09/13/16 06/01/17 Atorvastatin [Lipitor] 10 mg PO DAILY 09/13/16 06/01/17 Metoprolol Tartrate [Lopressor] 25 mg PO DAILY 09/13/16 06/01/17 Oxcarbazepine [Trileptal] 600 mg PO BID 09/13/16 06/01/17 amLODIPine [Norvasc] 5 mg PO DAILY 09/13/16 06/01/17 Review of Systems - Review of Systems Constitutional: Normal Eyes: Normal ENT: Normal Respiratory: Normal Cardiovascular: absent: Chest Pain, Palpitations, Syncope Gastrointestinal: absent: Abdominal Pain, Nausea, Vomiting Genitourinary Male: Normal Musculoskeletal: Other (left hand/thumb pain with thumb bleeding) Skin: Normal Neurological: Headache, Dizziness Endocrine: Normal Hemo/Lymphatic: Normal Psychiatric: Normal Physical Exam Vital Signs Reviewed: Yes Temperature: Afebrile Blood Pressure: Hypertensive Pulse: Regular Respiratory Rate: Normal Appearance: Positive for: Well-Appearing, Non-Toxic, Uncomfortable Pain Distress: None Mental Status: Positive for: Alert and Oriented X 3 - Systems Exam Head: Present: Atraumatic, Normocephalic, Other (no ecchymosis/swelling noted) Pupils: Present: PERRL, Other (visual field intact b/l, no nystagmus, no photophobia) Extroacular Muscles: Present: EOMI Conjunctiva: Present: Normal Ears: Present: Normal Mouth: Present: Other (fair dentitions, no drooling/stridor, uvula/tongue are midline; no dysphonia) Pharnyx: Present: Normal Nose (External): Present: Atraumatic Nose (Internal): Present: Normal Inspection Neck: Present: Normal Range of Motion, Trachea Midline, Other (intact ROM, no midline tenderness). No: MIDLINE TENDERNESS Respiratory/Chest: Present: Clear to Auscultation, Good Air Exchange, Other ( CTA b/l, no w/r/r). No: Respiratory Distress Cardiovascular: Present: Regular Rate and Rhythm, Normal S1, S2. No: Murmurs Abdomen: Present: Normal Bowel Sounds, Other (well nourished male, no focal tenderness, no chou's sign, no mcburney's point tenderness, no masses/rebound/ guarding/rigidity) Back: Present: Normal Inspection. No: CVA Tenderness, Midline Tenderness Upper Extremity: Present: Normal Inspection, Normal ROM, NORMAL PULSES, Deformity (+ left distal thumb medial region multiple lacerations ~ 1-1.5cm in total length, ? involving the distal portion of the nail, < 25% subungal hematoma; decr ROM to left thumb, neurovasc intact b/l, strength 5/5 grossly intact in all limbs) Lower Extremity: Present: Normal Inspection, NORMAL PULSES, Normal ROM, Neurovascularly Intact, Other (strength 5/5 grossly intact in all limbs, neurovasc intact b/l, no focal tenderness noted, no ecchymosis noted, + ambulatory). No: Deformity Neurological: Present: GCS=15, CN II-XII Intact, Speech Normal, Other (NIH stroke scale ~ 0, no slurr speech) Skin: Present: Warm, Normal Color Psychiatric: Present: Alert, Oriented x 3 Vital Signs Temp Pulse Resp BP Pulse Ox 06/01/17 17:28 89 18 165/79 H 98 06/01/17 13:18 97.8 F 64 18 146/78 99 06/01/17 13:17 97.8 F 62 62 H 146/78 99 Medical Decision Making Re-evaluation Time: 16:00 Reassessment Condition: Improving,but remains with symptoms - RAD Interpretation Member Services Coordinator: Radiologist ED Course and Treatment: 06/01/17 16:40 -Lt. hand thumb laceration repair requested by Dr. Garcia for the patient, pt and the family verbally agreed. -Lt. hand thumb laceration involving the distal nail skin is partially ripped off from the tissue with total of approx. 2cm laceration in total. -Sensation intact, motor 5/5, wound irrigated with normal saline 2000cc, clean with Betadine, sterile procedure as usual, 1% lidocaine with 2 mL with digit block, wound explored with no visible foreign bodies mentioned in the xray ( discussed with Dr. Garcia and recommend to suture the wound with no further repeat xray, go ahead to suture the wound as his clinical impression is likely avulse chip fracture), 5-0 nylon suture made 5 sutures which suture the nail bed and the thumb tissue, hemostasis obtained, bacitracin apply, gauze dressing , sensation intact, motor 5/5, minimal blood loss, pt. tolerated the procedure well with no complication. Pain decreased and pt. feel much better. total procedure time 30 minutes, pt. will need to have the sutures be removed in 10 days, oral antibiotic will be precribed by Dr. Garcia. (Ga Montoya) 06/01/17 14:07 Impression: head injury i have consider all the differential diagnosis regarding pt's chief medical complaints/clinical findings, including but are not limited to: r/o head bleed; r/o hand fx, r/o open fx; trip and fall A/P: head injury, left hand injury, knee contusion - xray - ct - wound care - observe - supportive care [address] and xray results 1600 pt received left thumb repair I supervised the resident/Mid-level provider with the procedure 06/01/17 16:36 pt remained at baseline mental status pt/spouse are made aware of pt's medical results pt is encouraged wound care and head injury precautions pt is encouraged RICE txt pt will f/u as directed pt will be discharged home (Demian Garcia) - RAD Interpretation Narrative RAD Interpretations (Text): 06/01/17 15:12 CT of head reviewed by radiologist, shows: HEMORRHAGE: No intracranial hemorrhage. BRAIN: There is an old focal encephalomalacia in the right parietal There is no mass, mass effect or abnormal extra-axial fluid collection. There is no territorial infarction. There are severe atherosclerotic vascular calcifications in the cavernous carotid and vertebral arteries. VENTRICLES: There is redemonstration of severe ventricular dilatation out of proportion to the sulcal prominence. There is mild age-related global parenchymal volume loss. CALVARIUM: Status post right parietal craniotomy. PARANASAL SINUSES: There is fluid in the left sphenoid chamber. Otherwise the remaining included paranasal sinuses are predominantly clear. MASTOID AIR CELLS: Predominantly clear. OTHER FINDINGS: None. IMPRESSION: 1. No acute intracranial abnormality. 2. Chronic presumable normal pressure hydrocephalus. 3. Fluid in the left sphenoid chamber may represent acute sinusitis in the appropriate clinical setting. 03/24/18 16:19 X-ray of hand reviewed by radiologist, shows: FINDINGS: BONES: Bandage overlies the tuft obscuring bony and soft tissue details. A tiny radiodensity seen within soft tissues which is likely separate from the bandage however and may reflect a retained radiodense foreign body or tiny fracture related to the tuft in this patient with reportedly a laceration of the soft tissues of the distal thumb. No dislocation or subluxation. Relatively advanced degenerative changes seen at the interphalangeal joint as well as the 1st metacarpal phalangeal joint as well. No fracture in the single AP view of the left hand with degenerative changes throughout the digits and wrist joints. JOINTS: As above. SOFT TISSUES: As above. OTHER FINDINGS: None. IMPRESSION: No prominent fracture appreciable at the left thumb with degenerative changes as described above. A tiny retained radiodense foreign body is questioned in the tuft soft tissues versus chip fracture. See discussion above. (Demian Garcia) Radiology Orders: 06/01/17 14:04 HEAD W/O CONTRAST [CT] Stat HAND LEFT 3 VIEWS ROUTINE [RAD] Stat - Medication Orders Current Medication Orders: Discontinued Medications Cephalexin Monohydrate (Keflex) 500 mg PO STAT STA PRN Reason: Protocol Stop: 06/01/17 14:06 Last Admin: 06/01/17 14:46 Dose: 500 mg Ibuprofen (Motrin Tab) 400 mg PO STAT STA Stop: 06/01/17 14:06 Last Admin: 06/01/17 14:46 Dose: 400 mg MAR Pain/Vitals Document 06/01/17 14:46 EQ (Rec: 06/01/17 14:46 EQ [id number]) Pain Reassessment Is This A Pain ReAssessment? No Sleep Is patient sleeping during reassessment? No Presence of Pain Presence of Pain Yes Tetanus/Reduced Diphtheria/Acell Pertussis (Boostrix Vaccine Inj) 0.5 ml IM .ONCE ONE Stop: 06/01/17 14:07 Last Admin: 06/01/17 14:46 Dose: 0.5 ml Immunization Registry Document 06/01/17 14:46 EQ (Rec: 06/01/17 14:46 EQ [id number]) Immunization Registry Consent Date 05/14/17 Disposition/Present on Arrival - Present on Arrival Any Indicators Present on Arrival: No History of DVT/PE: No History of Uncontrolled Diabetes: No Urinary Catheter: No History of Decub. Ulcer: No History Surgical Site Infection Following: None - Disposition Have Diagnosis and Disposition been Completed?: Yes Disposition Time: 16:36 Patient Plan: Discharge - Disposition Diagnosis: Head contusion, Thumb laceration, Thumb contusion, Fall Disposition: HOME/ ROUTINE Condition: STABLE Discharge Instructions (ExitCare): Closed Head Injury, Common Finger Injuries Print Language: AMHARIC Additional Instructions: Make sure to see your doctor in 1-2 days DRINK PLENTY OF FLUIDS take your medications as prescribed KEEP WOUND CLEAN AND DRY ICE YOUR THUMB 15min/hr over the next 1-2 days RETURN TO ED IF worse pain, cant breath, wound discharge/bleeding; hand/finger discoloration, persistent vomiting, high fever >101-102 for hours, altered behavior, slurr speech, facial changes, focal weakness (arm/leg or both), unable to urinate, heavy/persistent bleeding, passing out, chest pain, or other medical emergencies Prescriptions: Cephalexin [Keflex] 500 mg PO TID #20 capsule oxyCODONE/Acetaminophen [Percocet 5/325 mg Tab] 1 ea PO TID PRN #10 tab PRN Reason: Pain, Moderate (4-7) Referrals: Joyce Orellana MD [Primary Care Provider] - Follow up with primary Reid James MD [Staff Provider] - Follow up with primary Forms: [employer] (Indonesian)
--- NOTE | 2017-06-01 15:08 | CT ---
PROCEDURE: CT HEAD WITHOUT CONTRAST. HISTORY: hx of hydrocephalus, fell today, frontal headache COMPARISON: 05/14/2017. TECHNIQUE: Axial computed tomography images were obtained through the head/brain without intravenous contrast. Radiation dose: Total exam DLP = 982.07 mGy-cm. This CT exam was performed using one or more of the following dose reduction techniques: Automated exposure control, adjustment of the mA and/or kV according to patient size, and/or use of iterative reconstruction technique. FINDINGS: HEMORRHAGE: No intracranial hemorrhage. BRAIN: There is an old focal encephalomalacia in the right parietal There is no mass, mass effect or abnormal extra-axial fluid collection. There is no territorial infarction. There are severe atherosclerotic vascular calcifications in the cavernous carotid and vertebral arteries. VENTRICLES: There is redemonstration of severe ventricular dilatation out of proportion to the sulcal prominence. There is mild age-related global parenchymal volume loss. CALVARIUM: Status post right parietal craniotomy. PARANASAL SINUSES: There is fluid in the left sphenoid chamber. Otherwise the remaining included paranasal sinuses are predominantly clear. MASTOID AIR CELLS: Predominantly clear. OTHER FINDINGS: None. IMPRESSION: 1. No acute intracranial abnormality. 2. Chronic presumable normal pressure hydrocephalus. 3. Fluid in the left sphenoid chamber may represent acute sinusitis in the appropriate clinical setting.
[2017-06-01] MEDS ORDERED: Lidocaine 1% Inj (20ml) ONE (15:57)
--- NOTE | 2017-06-01 16:09 | RAD ---
PROCEDURE: Left Hand Radiographs. HISTORY: fell, left hand injury, thumb injury COMPARISON: None. FINDINGS: BONES: Bandage overlies the tuft obscuring bony and soft tissue details. A tiny radiodensity seen within soft tissues which is likely separate from the bandage however and may reflect a retained radiodense foreign body or tiny fracture related to the tuft in this patient with reportedly a laceration of the soft tissues of the distal thumb. No dislocation or subluxation. Relatively advanced degenerative changes seen at the interphalangeal joint as well as the 1st metacarpal phalangeal joint as well. No fracture in the single AP view of the left hand with degenerative changes throughout the digits and wrist joints. JOINTS: As above. SOFT TISSUES: As above. OTHER FINDINGS: None. IMPRESSION: No prominent fracture appreciable at the left thumb with degenerative changes as described above. A tiny retained radiodense foreign body is questioned in the tuft soft tissues versus chip fracture. See discussion above.
[2017-06-01 17:29] VITALS: BP 165/79; PULSE 89; O2SAT 98
== END 2017-06-01 17:33 | disposition home or self-care (01) ==
LOC: ED 13:07
DX: S61.012A Laceration without foreign body of left thumb without damage to nail, initial encounter (principal); S00.93XA Contusion of unspecified part of head, initial encounter; W01.0XXA Fall on same level from slipping, tripping and stumbling without subsequent striking against object, initial encounter; Y92.480 Sidewalk as the place of occurrence of the external cause; Z23 Encounter for immunization

== ENCOUNTER 2017-06-10 14:05 | Emergency (ER) | payer MEDICAID, MEDICARE ==
[2017-06-10 14:37] VITALS: BP 130/79; PULSE 61; RESP 17; TEMP 98; O2SAT 98; BMI 25.2
--- NOTE | 2017-06-10 14:37 | ED PDOC ---
Arrival/HPI - General Time Seen by Provider: 06/10/17 14:20 Historian: Patient - History of Present Illness Narrative History of Present Illness (Text): 06/10/17 14:33 77yo male present to ED for suture removal from his left thumb. Sutures was placed here 10days ago. Patient was referred to a hand specialist. but never followed up. He states he took the antibiotic that was given. Denies purulent discharge from the wound, redness, fever, focal weakness, paresthesia. Past Medical History - Provider Review Nursing Documentation Reviewed: Yes - Past History Past History: No Previous - Infectious Disease Hx of Infectious Diseases: None - Cardiac Hx Hypertension: Yes - Pulmonary Hx Respiratory Disorders: No - Neurological Hx Headaches: Yes Other/Comment: hydrocephalis. 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 Left knee surgery. bypass surgery Family/Social History - Physician Review Nursing Documentation Reviewed: Yes Family/Social History: Unknown Family HX Smoking Status: Unknown If Ever Smoked Hx Alcohol Use: No Hx Substance Use: No Hx Substance Use Treatment: No Allergies/Home Meds Allergies/Adverse Reactions: Allergies No Known Allergies Allergy (Verified 06/10/17 14:35) Home Medications: Home Meds Medication Instructions Recorded Confirmed Aspirin [Aspirin EC] 325 mg PO DAILY 09/13/16 06/10/17 Atorvastatin [Lipitor] 10 mg PO DAILY 09/13/16 06/10/17 Metoprolol Tartrate [Lopressor] 25 mg PO DAILY 09/13/16 06/10/17 Oxcarbazepine [Trileptal] 600 mg PO BID 09/13/16 06/10/17 amLODIPine [Norvasc] 5 mg PO DAILY 09/13/16 06/10/17 Review of Systems - Physician Review All systems were reviewed & negative as marked: Yes - Review of Systems Constitutional: Normal Eyes: Normal ENT: Normal Respiratory: Normal Cardiovascular: Normal Gastrointestinal: Normal Genitourinary Male: Normal Musculoskeletal: Normal Skin: Other (Suture removal) Neurological: Normal Endocrine: Normal Hemo/Lymphatic: Normal Psychiatric: Normal Physical Exam Vital Signs Reviewed: Yes Vital Signs Temp Pulse Resp BP Pulse Ox 06/10/17 14:36 98.0 F 61 17 130/79 98 Temperature: Afebrile Blood Pressure: Normal Pulse: Regular Respiratory Rate: Normal Appearance: Positive for: Well-Appearing, Non-Toxic, Comfortable Pain Distress: None Mental Status: Positive for: Alert and Oriented X 3 - Systems Exam Head: Present: Atraumatic, Normocephalic Pupils: Present: PERRL Extroacular Muscles: Present: EOMI Conjunctiva: Present: Normal Mouth: Present: Moist Mucous Membranes Neck: Present: Normal Range of Motion Respiratory/Chest: Present: Clear to Auscultation, Good Air Exchange. No: Respiratory Distress, Accessory Muscle Use Cardiovascular: Present: Regular Rate and Rhythm, Normal S1, S2. No: Murmurs Abdomen: No: Tenderness, Distention, Peritoneal Signs Back: Present: Normal Inspection Upper Extremity: Present: Normal Inspection. No: Cyanosis, Edema Lower Extremity: Present: Normal Inspection. No: Edema Neurological: Present: GCS=15, CN II-XII Intact, Speech Normal Skin: Present: Warm, Dry, Normal Color, Laceration (3Sutures noted in place on left distal finger with some area of open healing linear laceration on the tip of the thumb. No erythema. No purulent discharge. No crepitus.). No: Rashes Psychiatric: Present: Alert, Oriented x 3, Normal Insight, Normal Concentration Medical Decision Making ED Course and Treatment: 06/10/17 14:43 wound cleansed with betadine. 3sutures removed by medical student. Some edges, not well approximated, but healing. No sign of infection. Steri strip placed and dressed. Pt was advised to keep wound clean and dry. Disposition/Present on Arrival - Present on Arrival Any Indicators Present on Arrival: No History of DVT/PE: No History of Uncontrolled Diabetes: No Urinary Catheter: No History Surgical Site Infection Following: None - Disposition Have Diagnosis and Disposition been Completed?: Yes Diagnosis: Visit for suture removal Disposition: HOME/ ROUTINE Disposition Time: 14:25 Patient Plan: Discharge Patient Problems: Current Active Problems Problem Status Onset Visit for suture removal Acute Condition: STABLE Discharge Instructions (ExitCare): Stitches Removal Additional Instructions: Keep wound clean and dry Follow up with your Doctor Return to ED for any new symptom Referrals: Joyce Orellana MD [Primary Care Provider] - Follow up with primary
== END 2017-06-10 15:07 | disposition home or self-care (01) ==
LOC: ED 14:05
DX: Z48.02 Encounter for removal of sutures (principal); I10 Essential (primary) hypertension

== ENCOUNTER 2018-02-01 20:25 | Emergency (ER) | payer MEDICARE, OTHER ==
[2018-02-01 20:27] VITALS: BMI 25.2
[2018-02-01 20:37] VITALS: O2SAT 96
[2018-02-01 21:19] LABS: ALB/GLOB RATIO 1.4 (1.1-1.8); ALBUMIN 4.5 g/dL (3.0-4.8); ALT/SGPT 40 U/L (7-56); AST/SGOT 37 U/L (17-59); BLOOD UREA NITROGEN 14 mg/dL (7-21); CALCIUM 8.9 mg/dL (8.4-10.5); GFR NON-AFRICAN AMERICAN > 60
[2018-02-01 21:20] LABS: BASO # 0.02 K/mm3 (0.0-2.0); BASO % 0.2 % (0.0-3.0); EOS # 0.3 (0.0-0.7); EOS % 3.6 % (1.5-5.0); GRAN # 6.21 (1.4-6.5); GRAN % 70.1 % (50.0-68.0); HEMOGLOBIN 13.1 g/dL (14.0-18.0); LYMPH # 1.4 (1.2-3.4); LYMPH % 15.5 % (22.0-35.0); MEAN CELL VOLUME 84.7 fl (80.0-105.0); MEAN CORPUSCULAR HEMOGLOBIN 28.2 pg (25.0-35.0); MEAN CORPUSCULAR HGB CONC 33.3 g/dl (31.0-37.0); MEAN PLATELET VOLUME 8.5 fl (7.0-11.0); MONO # 0.9 (0.1-0.6); MONO % 10.6 % (1.0-6.0); RBC 4.64 10^6/uL (3.5-6.1); RED CELL DISTRIBUTION WIDTH 14.3 % (11.5-14.5); WHITE BLOOD COUNT 8.9 10^3/uL (4.5-11.0)
[2018-02-01 21:31] LABS: TROPONIN I < 0.01 ng/mL
[2018-02-01 22:02] LABS: PH,URINE 7.5 (4.7-8.0); URINE BILIRUBIN NEGATIVE (NEGATIVE); URINE BLOOD TRACE-INTACT (NEGATIVE); URINE GLUCOSE (UA) NEGATIVE (NEGATIVE); URINE LEUKOCYTE ESTERASE NEGATIVE Leu/uL (NEGATIVE); URINE PROTEIN 30 mg/dL (<30 mg/dL); URINE UROBILINOGEN 0.2 E.U./dL (<1 E.U./dL)
[2018-02-01 22:03] LABS: URINE APPEARANCE CLEAR (CLEAR); URINE COLOR YELLOW (YELLOW)
[2018-02-01 22:10] LABS: URINE BACTERIA FEW (NEG); URINE RBC 0 - 2 /hpf (0-2)
--- NOTE | 2018-02-01 22:15 | ED PDOC ---
Arrival/HPI - General Chief Complaint: Fever Time Seen by Provider: 02/01/18 20:28 Historian: Patient - History of Present Illness Narrative History of Present Illness (Text): 02/01/18 22:11 A 77 year old male whose past medical history includes hypertension and hydrocephalus, presents to the emergency department with his who states that the patient had a period of "confusion" this evening. The reports that the patient was laying in bed and his arms were shaking. She noted the patient to be urinary incontinent. The patient is currently alert and oriented x3 and denies fevers, chills, headache, dizziness, chest pain, shortness of breath, dyspnea on exertion, cough, abdominal pain, nausea, vomiting, diarrhea, back pain, neck pain, urinary/bowel changes, or any other complaint. Time/Duration: Prior to Arrival Symptom Onset: Sudden Symptom Course: Unchanged Activities at Onset: Rest, Light Context: Home Past Medical History - Provider Review Nursing Documentation Reviewed: Yes - Past History Past History: No Previous - Infectious Disease Hx of Infectious Diseases: None - Cardiac Hx Cardiac Disorders: Yes Hx Hypertension: Yes - Pulmonary Hx Respiratory Disorders: No - Neurological Hx Neurological Disorder: Yes Hx Headaches: Yes Other/Comment: hydrocephalus. blood clot on brain/removed - HEENT Hx HEENT Disorder: No - Renal Hx Renal Disorder: No - Endocrine/Metabolic Hx Endocrine Disorders: No - Hematological/Oncological Hx Blood Disorders: No - Integumentary Hx Dermatological Disorder: Yes Other/Comment: surgical scar med chest, multiple surgical scar from triple bypass sx to right inner leg, scars from varicose vein sx both legs - Musculoskeletal/Rheumatological Hx Musculoskeletal Disorders: Yes Hx Falls: Yes - Gastrointestinal Hx Gastrointestinal Disorders: No - Genitourinary/Gynecological Hx Genitourinary Disorders: No - Psychiatric Hx Psychophysiologic Disorder: No Hx Substance Use: No - Surgical History Hx Coronary Artery Bypass Graft: Yes Hx Open Heart Surgery: Yes Other/Comment: Blood clot removed from brain. Left knee surgery - Anesthesia Hx Anesthesia: Yes Family/Social History - Physician Review Nursing Documentation Reviewed: Yes Family/Social History: No Known Family HX Smoking Status: Never Smoked Hx Alcohol Use: No Hx Substance Use: No Hx Substance Use Treatment: No Allergies/Home Meds Allergies/Adverse Reactions: Allergies No Known Allergies Allergy (Verified 02/01/18 20:33) Home Medications: Home Meds Medication Instructions Recorded Confirmed Aspirin [Aspirin EC] 325 mg PO DAILY 09/13/16 06/10/17 Atorvastatin [Lipitor] 10 mg PO DAILY 09/13/16 02/01/18 Metoprolol Tartrate [Lopressor] 25 mg PO DAILY 09/13/16 02/01/18 Oxcarbazepine [Trileptal] 600 mg PO BID 09/13/16 02/01/18 amLODIPine [Norvasc] 5 mg PO DAILY 09/13/16 02/01/18 Docusate [Colace] 1 cap PO PRN PRN 02/01/18 02/01/18 Review of Systems - Physician Review All systems were reviewed & negative as marked: Yes - Review of Systems Constitutional: absent: Fevers ENT: absent: Sore Throat Respiratory: absent: SOB, Cough Cardiovascular: absent: Chest Pain, FLETCHER Gastrointestinal: absent: Abdominal Pain, Stool Changes, Diarrhea, Nausea, Vomiting Genitourinary Male: absent: Urinary Output Changes Musculoskeletal: absent: Back Pain, Neck Pain Neurological: absent: Headache, Dizziness Physical Exam Vital Signs Reviewed: Yes Vital Signs Temp Pulse Resp BP Pulse Ox 02/01/18 21:57 80 24 141/77 96 02/01/18 20:33 100.5 F H 81 18 155/79 H 96 Temperature: Febrile Blood Pressure: Hypertensive Pulse: Regular Respiratory Rate: Normal Appearance: Positive for: Well-Appearing, Non-Toxic, Comfortable Pain Distress: None Mental Status: Positive for: Alert and Oriented X 3 - Systems Exam Head: Present: Atraumatic, Normocephalic Pupils: Present: PERRL Extroacular Muscles: Present: EOMI Conjunctiva: Present: Normal Mouth: Present: Moist Mucous Membranes Neck: Present: Normal Range of Motion Respiratory/Chest: Present: Clear to Auscultation, Good Air Exchange. No: Respiratory Distress, Accessory Muscle Use Cardiovascular: Present: Regular Rate and Rhythm, Normal S1, S2. No: Murmurs Abdomen: No: Tenderness, Distention, Peritoneal Signs Back: Present: Normal Inspection Upper Extremity: Present: Normal Inspection. No: Cyanosis, Edema Lower Extremity: Present: Normal Inspection. No: Edema Neurological: Present: GCS=15, CN II-XII Intact, Speech Normal Skin: Present: Warm, Dry, Normal Color. No: Rashes Psychiatric: Present: Alert, Oriented x 3, Normal Insight, Normal Concentration Medical Decision Making ED Course and Treatment: 02/01/18 22:13 Impression: A 77 year old male presents to the emergency department for a complaint of "confusion" this evening as per . Plan: -- Head CT -- EKG -- Chest X-ray -- Labs -- Urine/ Blood Culture -- Reassess and disposition Prior Visits: Notes and results from previous visits were reviewed. Progress Notes: EKG: Ordered, reviewed, and independently interpreted the EKG. Rate : 83 BPM Rhythm : NSR EXAM: CT Head without Intravenous Contrast. Electronically signed on Feb 01, 2018 10:10:38 PM EST by: Ariel Emerson M.D., CHARISSE Certified By [facility] Fellowship Trained MRI and CT Specialist IMPRESSION: 1. Status post right frontoparietal craniotomy. 2. There is generalized parenchymal atrophy noted as demonstrated by symmetrical dilatation of ventricles and sulci. 3. 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 4. No acute intracranial pathology. 02/01/18 22:34: Chest X-ray read and interpreted by me shows no acute processes. 02/01/18 22:47 On re-evaluation, patient feels better and is in no acute distress. I have discussed the results and plan with the patient, who expresses understanding. Patient in agreement with plan to be discharged home. Patient is stable for discharge. Patient was instructed to follow up with physician or return if symptoms worsen or new concerning symptoms arise. - Lab Interpretations Lab Results: 02/01/18 20:55 02/01/18 20:55 Lab Results 02/01/18 21:45: Urine Color Yellow, Urine Appearance Clear, Urine pH 7.5, Ur Specific [place] 1.015, Urine Protein 30 H, Urine Glucose (UA) Negative, Urine Ketones Negative, Urine Blood Trace-intact H, Urine Nitrate Negative, Urine Bilirubin Negative, Urine Urobilinogen 0.2, Ur Leukocyte Esterase Negative, Urine RBC 0 - 2, Urine WBC 2 - 5, Ur Epithelial Cells 3 - 4, Urine Bacteria Few 02/01/18 20:55: Sodium 137, Potassium 4.1, Chloride 102, Carbon Dioxide 25, Anion Gap 14, BUN 14, Creatinine 0.8, Est GFR ( Amer) > 60, Est GFR (Non- Af Amer) > 60, Random Glucose 90, Calcium 8.9, Magnesium 2.2, Total Bilirubin 0.4, AST 37, ALT 40, Alkaline Phosphatase 72, Lactate Dehydrogenase 481, Total Creatine Kinase 185, Troponin I < 0.01 D, Total Protein 7.7, Albumin 4.5, Globulin 3.3, Albumin/Globulin Ratio 1.4 02/01/18 20:55: WBC 8.9, RBC 4.64, Hgb 13.1 L, Hct 39.3 L, MCV 84.7, MCH 28.2, MCHC 33.3, RDW 14.3, Plt Count 146, MPV 8.5, Gran % 70.1 H, Lymph % (Auto) 15.5 L, Hunt % (Auto) 10.6 H, Eos % (Auto) 3.6, Baso % (Auto) 0.2, Gran # 6.21, Lymph # (Auto) 1.4, Hunt # (Auto) 0.9 H, Eos # (Auto) 0.3, Baso # (Auto) 0.02 02/01/18 20:43: Influenza Typ A,B (EIA) Negative for flu a/b I have reviewed the lab results: Yes - RAD Interpretation Radiology Orders: 02/01/18 20:38 CHEST PORTABLE [RAD] Stat 02/01/18 21:15 HEAD W/O CONTRAST [CT] Stat - EKG Interpretation Interpreted by ED Physician: Yes Type: 12 lead EKG - Scribe Statement The provider has reviewed the documentation as recorded by the Scribe Cora Holland Provider Scribe Attestation: All medical record entries made by the Scribe were at my direction and personally dictated by me. I have reviewed the chart and agree that the record accurately reflects my personal performance of the history, physical exam, medical decision making, and the department course for this patient. I have also personally directed, reviewed, and agree with the discharge instructions and disposition. Disposition/Present on Arrival - Present on Arrival Any Indicators Present on Arrival: No History of DVT/PE: No History of Uncontrolled Diabetes: No Urinary Catheter: No History of Decub. Ulcer: No History Surgical Site Infection Following: None - Disposition Have Diagnosis and Disposition been Completed?: Yes Diagnosis: Seizure disorder Disposition: HOME/ ROUTINE Disposition Time: 20:10 Condition: GOOD Discharge Instructions (ExitCare): Seizures, Adult (DC) Additional Instructions: MAGTANGOL A LEWIS, thank you for letting us take care of you today. The emergency medical care you received today was directed at your acute symptoms. If you were prescribed any medication, please fill it and take as directed. It may take several days for your symptoms to resolve. Return to the Emergency Department if your symptoms worsen, do not improve, or if you have any other problems. Please contact your doctor or call one of the physicians/clinics you have been referred to that are listed on the Patient Visit Information form that is included in your discharge packet. Bring any paperwork you were given at discharge with you along with any medications you are taking to your follow up visit. Our treatment cannot replace ongoing medical care by a primary care provider outside of the emergency department. Thank you for allowing the [facility] team to be part of your care today. Continue taking your medication as prescribed. Follow up with your primary care doctor and neurologist in 2-3 days for re- evaluation and further management. Referrals: [facility], [Non-Staff] - Follow up with primary Forms: [employer] ([place]an)
[2018-02-01 23:02] VITALS: BP 128/73; PULSE 90; RESP 16; TEMP 99.1
--- NOTE | 2018-02-02 08:10 | CARD ---
APPROVED REPORT Date of service: 02/01/2018 EKG Measurement Heart [id number] <Conclusion> Normal sinus rhythm Normal ECG No change except the rate is faster
--- NOTE | 2018-02-02 10:44 | CT ---
Date of service: 02/01/2018 PROCEDURE: CT HEAD WITHOUT CONTRAST. HISTORY: r/o ICH h/o - hydrocephalus COMPARISON: Noncontrast head CT performed 06/01/17 TECHNIQUE: Axial computed tomography images were obtained through the head/brain without intravenous contrast. Radiation dose: Total exam DLP = 1121.75 mGy-cm. This CT exam was performed using one or more of the following dose reduction techniques: Automated exposure control, adjustment of the mA and/or kV according to patient size, and/or use of iterative reconstruction technique. FINDINGS: HEMORRHAGE: No intracranial hemorrhage. BRAIN: Mild age-related generalized volume loss. No mass effect or edema. Severe atherosclerotic calcifications. Right parietal encephalomalacia. Scattered periventricular and subcortical white matter hypodensities, which are nonspecific, but often seen with chronic microvascular ischemic disease. VENTRICLES: Dilatation of the ventricles out of proportion to sulcal prominence. CALVARIUM: Right parietal craniotomy. PARANASAL SINUSES: Opacification of the left sphenoid sinus with partial high density contents. Mucosal thickening of the ethmoid air cells. MASTOID AIR CELLS: Unremarkable as visualized. No inflammatory changes. OTHER FINDINGS: None. IMPRESSION: Right parietal encephalomalacia. Nonspecific white matter changes. Chronic presumable normal pressure hydrocephalus. Please note that increased attenuation of the left sphenoid sinus contents may indicate proteinaceous material or fungal colonization. Additional findings as above. Preliminary impression was provided by [employer]. Study marked for PA review.
--- NOTE | 2018-02-02 11:11 | RAD ---
HISTORY: cough r/o infiltrate COMPARISON: Chest x-ray performed 05/14/17 TECHNIQUE: Chest, one view. FINDINGS: LUNGS: No focal consolidation. Please note that chest x-ray has limited sensitivity for the detection of pulmonary masses. PLEURA: No significant pleural effusion identified. No definite pneumothorax . CARDIOVASCULAR: Median sternotomy wires. Cardiomegaly. Dense atherosclerotic calcifications of an ectatic aorta. OSSEOUS STRUCTURES: Degenerative changes. VISUALIZED UPPER ABDOMEN: Unremarkable. OTHER FINDINGS: None. IMPRESSION: No focal consolidation.
== END 2018-02-01 23:10 | disposition home or self-care (01) ==
LOC: ED 20:25
DX: G40.909 Epilepsy, unspecified, not intractable, without status epilepticus (principal); I10 Essential (primary) hypertension; G91.9 Hydrocephalus, unspecified

== ENCOUNTER 2018-03-24 20:09 | Inpatient (IN) | payer MEDICARE, OTHER ==
[2018-03-24] MEDS ORDERED: Sodium Chloride 0.9% 1,000 ML IV STA (20:44)
--- NOTE | 2018-03-24 20:51 | ED PDOC ---
Arrival/HPI - General Chief Complaint: Weakness/Neurological Deficit Time Seen by Provider: 03/24/18 20:42 Historian: Patient - History of Present Illness Narrative History of Present Illness (Text): 03/24/18 20:50 Iam Mckeon is a 78 year old male, whose past medical history includes CAD s/p CABG, hydrocephalus, seizures, hypertension, and hyperlipidemia, who presents to the Emergency department accompanied by for fever. states patient has been experiencing fever and cough for the past 3-4 days. reports patient was seen by his PMD and advised to come to the Emergency department for further evaluation. also reports patient may have had a seizure earlier this evening, however she did not witness the episode. Patient denies any nausea, vomiting, diarrhea, urinary symptoms, back pain, neck pain, headache, dizziness, or any other complaints. Symptom Onset: Gradual Symptom Course: Unchanged Activities at Onset: Light Context: Home Past Medical History - Provider Review Nursing Documentation Reviewed: Yes - Past History Past History: No Previous - Infectious Disease Hx of Infectious Diseases: None - Cardiac Hx Cardiac Disorders: Yes Hx Hypertension: Yes - Pulmonary Hx Respiratory Disorders: No - Neurological Hx Neurological Disorder: Yes Hx Headaches: Yes Hx Seizures: Yes Other/Comment: hydrocephalus. blood clot on brain/removed - HEENT Hx HEENT Disorder: No - Renal Hx Renal Disorder: No - Endocrine/Metabolic Hx Endocrine Disorders: No - Hematological/Oncological Hx Blood Disorders: No - Integumentary Hx Dermatological Disorder: Yes Other/Comment: surgical scar med chest, multiple surgical scar from triple bypass sx to right inner leg, scars from varicose vein sx both legs - Musculoskeletal/Rheumatological Hx Musculoskeletal Disorders: Yes Hx Falls: Yes - Gastrointestinal Hx Gastrointestinal Disorders: No - Genitourinary/Gynecological Hx Genitourinary Disorders: No - Psychiatric Hx Psychophysiologic Disorder: No Hx Substance Use: No - Surgical History Hx Coronary Artery Bypass Graft: Yes Hx Open Heart Surgery: Yes Other/Comment: Blood clot removed from brain. Left knee surgery - Anesthesia Hx Anesthesia: Yes Family/Social History - Physician Review Nursing Documentation Reviewed: Yes Family/Social History: Unknown Family HX Smoking Status: Never Smoked Hx Alcohol Use: No Hx Substance Use: No Hx Substance Use Treatment: No Allergies/Home Meds Allergies/Adverse Reactions: Allergies No Known Allergies Allergy (Verified 02/01/18 20:33) Home Medications: Home Meds Medication Instructions Recorded Confirmed Aspirin [Aspirin EC] 325 mg PO DAILY 09/13/16 06/10/17 Atorvastatin [Lipitor] 10 mg PO DAILY 09/13/16 02/01/18 Metoprolol Tartrate [Lopressor] 25 mg PO DAILY 09/13/16 02/01/18 Oxcarbazepine [Trileptal] 600 mg PO BID 09/13/16 02/01/18 amLODIPine [Norvasc] 5 mg PO DAILY 09/13/16 02/01/18 Docusate [Colace] 1 cap PO PRN PRN 02/01/18 02/01/18 Review of Systems - Physician Review All systems were reviewed & negative as marked: Yes - Review of Systems Constitutional: Fevers Eyes: Normal ENT: Normal Respiratory: Cough. absent: SOB Cardiovascular: Normal. absent: Chest Pain Gastrointestinal: Normal. absent: Abdominal Pain, Diarrhea, Nausea, Vomiting Genitourinary Male: Normal. absent: Dysuria, Frequency, Hematuria, Urinary Output Changes Musculoskeletal: Normal. absent: Back Pain, Neck Pain Skin: Normal. absent: Rash Neurological: Seizure. absent: Headache, Dizziness Endocrine: Normal Hemo/Lymphatic: Normal Psychiatric: Normal Physical Exam Vital Signs Reviewed: Yes Vital Signs Temp Pulse Resp BP Pulse Ox 03/24/18 20:24 102.9 F H 86 19 142/90 96 Temperature: Febrile Blood Pressure: Normal Pulse: Regular Respiratory Rate: Normal Appearance: Positive for: Well-Appearing, Comfortable Pain Distress: None Mental Status: Positive for: Alert and Oriented X 3 - Systems Exam Head: Present: Atraumatic, Normocephalic Pupils: Present: PERRL Extroacular Muscles: Present: EOMI Conjunctiva: Present: Normal Ears: Present: Normal, NORMAL TM, Normal Canal. No: Erythema, TM Bulging, Fluid, TM Perf Mouth: Present: Moist Mucous Membranes Pharnyx: Present: Normal. No: ERYTHEMA, EXUDATE, TONSILS ENLARGED, Peritonsilar Swelling, Uvular Deviation, Muffled/Hoarse Voice, Strider, Soft Palate/Uvular Edema Nose (External): Present: Atraumatic Nose (Internal): Present: Normal Inspection Neck: Present: Normal Range of Motion. No: Meningeal Signs, MIDLINE TENDERNESS, Paraspinal Tenderness Respiratory/Chest: Present: Clear to Auscultation, Good Air Exchange. No: Respiratory Distress, Accessory Muscle Use Cardiovascular: Present: Regular Rate and Rhythm, Normal S1, S2. No: Murmurs Abdomen: No: Tenderness, Distention, Peritoneal Signs Back: Present: Normal Inspection. No: CVA Tenderness, Midline Tenderness, Paraspinal Tenderness Upper Extremity: Present: Normal Inspection. No: Cyanosis, Edema Lower Extremity: Present: Normal Inspection. No: Edema Neurological: Present: GCS=15, CN II-XII Intact, Speech Normal Skin: Present: Warm, Dry, Normal Color. No: Rashes Psychiatric: Present: Alert, Oriented x 3, Normal Insight, Normal Concentration Medical Decision Making ED Course and Treatment: 03/24/18 20:50 Impression: 78 year old male brought in for fever, cough, and possible seizure. Plan: -- CT Head w/o contrast -- EKG -- Chest X-ray -- Labs, VBG, cardiac enzymes, blood cultures -- Urinalysis, urine cultures -- IV fluids -- Reassess and disposition Prior Visits: Notes and results from previous visits were reviewed. Progress Notes: Reviewed EKG, NSR at [address]-segment elevations or depressions, no T-wave inversions, normal intervals. 03/24/18 21:50 Chest X-ray reviewed, shows questionable right-sided infiltrate 03/24/18 22:14 Case discussed with medical office administrator transfusion aide, who is aware and agrees with plan. 03/24/18 22:16 CT Head: BRAIN Chronic periventricular and subcortical microvascular disease is seen. VENTRICLES: There is generalized parenchymal atrophy noted as demonstrated by symmetrical dilatation of ventricles and sulci. ORBITS: The orbits are unremarkable. SINUSES AND MASTOIDS: The mastoid air cells are clear. Bilateral ethmoid and sphenoid sinusitis. BONES: Status post right frontoparietal craniotomy. SOFT TISSUES: Unremarkable. MISCELLANEOUS: No acute intracranial pathology. IMPRESSION: 1. Status post right frontoparietal craniotomy. 2. There is generalized parenchymal atrophy noted as demonstrated by symmetrical dilatation of ventricles and sulci. 3. 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 4. No acute intracranial pathology. No interval change. Electronically signed on Mar 24, 2018 10:14:17 PM EST by: Ariel Emerson M.D., CHARISSE Certified By [facility] Fellowship Trained MRI and CT Specialist 03/24/18 22:[address] Almeida, who is aware and agrees with plan. Accepts pt in to hospitalist service. - Lab Interpretations I have reviewed the lab results: Yes - RAD Interpretation Radiology Orders: 03/24/18 20:42 CHEST PORTABLE [RAD] Stat Manual Qa Tester: ED Physician, Radiologist - EKG Interpretation Interpreted by ED Physician: Yes Type: 12 lead EKG - Medication Orders Current Medication Orders: Sodium Chloride (Sodium Chloride 0.9%) 1,000 mls @ 999 mls/hr IV .Q1H1M STA Stop: 03/24/18 21:44 - Scribe Statement The provider has reviewed the documentation as recorded by the Jodieibjewel Blank Provider Scribe Attestation: All medical record entries made by the Scribe were at my direction and personally dictated by me. I have reviewed the chart and agree that the record accurately reflects my personal performance of the history, physical exam, medical decision making, and the department course for this patient. I have also personally directed, reviewed, and agree with the discharge instructions and disposition. Disposition/Present on Arrival - Present on Arrival Any Indicators Present on Arrival: No History of DVT/PE: No History of Uncontrolled Diabetes: No Urinary Catheter: No History of Decub. Ulcer: No History Surgical Site Infection Following: None - Disposition Have Diagnosis and Disposition been Completed?: Yes Diagnosis: Fever, Pneumonia, Breakthrough seizure Disposition: HOSPITALIZED Disposition Time: 22:29 Condition: STABLE Forms: [employer] (Russian)
[2018-03-24 21:16] LABS: VENOUS BLOOD GAS BASE EXCESS 2.9 mmol/L (0.0-2.0); VENOUS BLOOD GAS PO2 102 mm/Hg (30-55); VENOUS BLOOD PH 7.42 (7.32-7.43)
[2018-03-24 21:44] LABS: BASO # 0.02 K/mm3 (0.0-2.0); BASO % 0.3 % (0.0-3.0); EOS # 0.1 (0.0-0.7); EOS % 1.7 % (1.5-5.0); GRAN # 4.9 (1.4-6.5); GRAN % 69.2 % (50.0-68.0); HEMOGLOBIN 12.6 g/dL (14.0-18.0); LYMPH # 1.2 (1.2-3.4); LYMPH % 16.9 % (22.0-35.0); MEAN CELL VOLUME 84.3 fl (80.0-105.0); MEAN CORPUSCULAR HEMOGLOBIN 27.9 pg (25.0-35.0); MEAN CORPUSCULAR HGB CONC 33.1 g/dl (31.0-37.0); MEAN PLATELET VOLUME 8.8 fl (7.0-11.0); MONO # 0.8 (0.1-0.6); MONO % 11.9 % (1.0-6.0); RBC 4.52 10^6/uL (3.5-6.1); RED CELL DISTRIBUTION WIDTH 14.3 % (11.5-14.5); WHITE BLOOD COUNT 7.1 10^3/uL (4.5-11.0)
[2018-03-24 21:48] LABS: INR 1.04; PARTIAL THROMBOPLASTIN TIME 33.3 Seconds (25.1-36.5); PROTHROMBIN TIME 11.9 SECONDS (9.4-12.5)
[2018-03-24 21:51] LABS: ALB/GLOB RATIO 1.4 (1.1-1.8); ALBUMIN 4.6 g/dL (3.0-4.8); ALT/SGPT 35 U/L (7-56); AST/SGOT 37 U/L (17-59); BLOOD UREA NITROGEN 15 mg/dL (7-21); GFR NON-AFRICAN AMERICAN > 60
[2018-03-24] MEDS ORDERED: Azithromycin 500MG/NS 250ml 500 MG/250 ML BAG IV STA (22:07)
[2018-03-24] MEDS ORDERED: cefTRIAXone 1 gm 1 GM/100 ML BAG IV STA (22:07)
[2018-03-24 22:28] LABS: TROPONIN I 0.02 ng/mL
[2018-03-24 23:30] LABS: PH,URINE 6.5 (4.7-8.0); URINE BILIRUBIN NEGATIVE (NEGATIVE); URINE BLOOD TRACE-INTACT (NEGATIVE); URINE GLUCOSE (UA) NEGATIVE (NEGATIVE); URINE LEUKOCYTE ESTERASE NEGATIVE Leu/uL (NEGATIVE); URINE PROTEIN TRACE mg/dL (<30 mg/dL); URINE UROBILINOGEN 0.2 E.U./dL (<1 E.U./dL)
[2018-03-24 23:35] LABS: URINE APPEARANCE CLEAR (CLEAR); URINE COLOR YELLOW (YELLOW)
[2018-03-24 23:53] LABS: URINE EPITHELIAL CELLS 0 - 2 /hpf (0-5); URINE WBC 0 - 2 /hpf (0-6)
[2018-03-25] MEDS: Potassium Chloride 30 MEQ in Sodium Chloride 0.9% 1,000 ML IV SCH ×2 (01:49→18:02)
--- NOTE | 2018-03-25 06:09 | CP.PCM.HP ---
History of Present Illness - History of Present Illness History of Present Illness: Medicine H/P: Lyn, PGY - 2 Chief Complaint: Possible seizure HPI: 78 year old male with medical history pertiennt for hydrocephalus and seizures presents s/p unwitnessed seizure with at bedside. Patient's states that he has been very sleepy all day and that he states that earlier in the day he started shaking as though he was having a seizure, with loss of bladder control. She states that he has also been coughing and has had a fever for the entire day, with clear sputum. Patient denies sick contacts, chills, nausea and vomiting, chest pain, and shortness of breath. NOte - patient does NOT tolerate Keppra well, as per his . He sees Dr. Jamil Cuellar MD outpatient for neurology Review of systems: 12 point ROS obtained and negative except as per HPI PMHx: CAD s/p CABG, hydrocephalus, HTN, hypercholesterolemia. PSHx: CABG, Unspecified left knee surgery Allergies: NKDA Social: Former smoker began at age 17. Drinks socially. Denies drug use. Home Meds: Reviwed, as per [facility] Hx: Seizures Present on Admission - Present on Admission Any Indicators Present on Admission: No Past Patient History - Infectious Disease Hx of Infectious Diseases: None - Past Social History Smoking Status: Never Smoked - CARDIAC Hx Cardiac Disorders: Yes Hx Hypertension: Yes - PULMONARY Hx Respiratory Disorders: No - NEUROLOGICAL Hx Neurological Disorder: Yes Hx Seizures: Yes Other/Comment: hydrocephalus. blood clot on brain/removed - HEENT Hx HEENT Problems: No - RENAL Hx Chronic Kidney Disease: No - ENDOCRINE/METABOLIC Hx Endocrine Disorders: No - HEMATOLOGICAL/ONCOLOGICAL Hx Blood Disorders: No - INTEGUMENTARY Hx Dermatological Problems: Yes Other/Comment: surgical scar med chest, multiple surgical scar from triple bypass sx to right inner leg, scars from varicose vein sx both legs - MUSCULOSKELETAL/RHEUMATOLOGICAL Hx Musculoskeletal Disorders: Yes Hx Falls: Yes - GASTROINTESTINAL Hx Gastrointestinal Disorders: No - GENITOURINARY/GYNECOLOGICAL Hx Genitourinary Disorders: No - PSYCHIATRIC Hx Psychophysiologic Disorder: No Hx Substance Use: No - SURGICAL HISTORY Hx Coronary Artery Bypass Graft: Yes Hx Open Heart Surgery: Yes Other/Comment: Blood clot removed from brain. Left knee surgery - ANESTHESIA Hx Anesthesia: Yes Meds Allergies/Adverse Reactions: Allergies Allergy/AdvReac Type Severity Reaction Status Date / Time No Known Allergies Allergy Verified 02/01/18 20:33 Physical Exam - Constitutional Appears: Well - Head Exam Head Exam: ATRAUMATIC, NORMAL INSPECTION, NORMOCEPHALIC - Eye Exam Eye Exam: EOMI, Normal appearance, PERRL Pupil Exam: NORMAL ACCOMODATION, PERRL - ENT Exam ENT Exam: Mucous Membranes Moist, Normal Exam - Neck Exam Neck exam: Positive for: Normal Inspection - Respiratory Exam Respiratory Exam: Clear to Auscultation Bilateral, NORMAL BREATHING PATTERN - Cardiovascular Exam Cardiovascular Exam: REGULAR RHYTHM - GI/Abdominal Exam GI & Abdominal Exam: Normal Bowel Sounds, Soft. absent: Tenderness - Extremities Exam Extremities exam: Positive for: normal inspection - Back Exam Back exam: NORMAL INSPECTION - Neurological Exam Neurological exam: Alert, CN II-XII Intact, Normal Gait, Oriented x3, Reflexes Normal - Psychiatric Exam Psychiatric exam: Normal Affect, Normal Mood - Skin Skin Exam: Dry, Intact, Normal Color, Warm Results - Vital Signs Recent Vital Signs: Last Vital Signs Temp 99.0 F 03/25/18 01:59 Pulse 65 03/25/18 04:36 Resp 18 03/25/18 04:36 BP 134/82 03/25/18 04:36 Pulse Ox 97 03/25/18 04:36 - Labs Result Diagrams: 03/24/18 20:50 03/24/18 20:50 Labs: Laboratory Results - last 24 hr 03/24/18 03/24/18 03/24/18 20:50 20:50 20:50 WBC 7.1 D RBC 4.52 Hgb 12.6 L Hct 38.1 L MCV 84.3 MCH 27.9 MCHC 33.1 RDW 14.3 Plt Count 177 MPV 8.8 Gran % 69.2 H Lymph % (Auto) 16.9 L [place] % (Auto) 11.9 H Eos % (Auto) 1.7 Baso % (Auto) 0.3 Gran # 4.90 Lymph # (Auto) 1.2 [place] # (Auto) 0.8 H Eos # (Auto) 0.1 Baso # (Auto) 0.02 PT 11.9 INR 1.04 APTT 33.3 pO2 VBG pH VBG pCO2 VBG HCO3 VBG Total CO2 VBG O2 Sat (Calc) VBG Base Excess VBG Potassium Glucose Lactate FiO2 Sodium 135 Potassium 3.9 Chloride 98 Carbon Dioxide 28 Anion Gap 14 BUN 15 Creatinine 0.8 Est GFR ( Amer) > 60 Est GFR (Non-Af Amer) > 60 Random Glucose 108 Calcium 9.0 Phosphorus 3.7 Magnesium 2.1 Total Bilirubin 0.4 AST 37 ALT 35 Alkaline Phosphatase 87 Lactate Dehydrogenase Total Creatine Kinase Troponin I Total Protein 7.7 Albumin 4.6 Globulin 3.2 Albumin/Globulin Ratio 1.4 Venous Blood Potassium Urine Color Urine Appearance Urine pH Ur Specific [place] Urine Protein Urine Glucose (UA) Urine Ketones Urine Blood Urine Nitrate Urine Bilirubin Urine Urobilinogen Ur Leukocyte Esterase Urine RBC Urine WBC Ur Epithelial Cells Urine Bacteria Influenza Typ A,B (EIA) 03/24/18 03/24/18 03/24/18 20:50 20:58 21:11 WBC RBC Hgb Hct MCV MCH MCHC RDW Plt Count MPV Gran % Lymph % (Auto) [place] % (Auto) Eos % (Auto) Baso % (Auto) Gran # Lymph # (Auto) [place] # (Auto) Eos # (Auto) Baso # (Auto) PT INR APTT pO2 102 H VBG pH 7.42 VBG pCO2 43.0 VBG HCO3 27.9 VBG Total CO2 29.2 H VBG O2 Sat (Calc) 99.4 H VBG Base Excess 2.9 H VBG Potassium 3.6 Glucose 109 Lactate 1.0 FiO2 21.0 Sodium 134.0 Potassium Chloride 99.0 Carbon Dioxide Anion Gap BUN Creatinine Est GFR ( Amer) Est GFR (Non-Af Amer) Random Glucose Calcium Phosphorus Magnesium Total Bilirubin AST ALT Alkaline Phosphatase Lactate Dehydrogenase 458 Total Creatine Kinase 132 Troponin I 0.02 D Total Protein Albumin Globulin Albumin/Globulin Ratio Venous Blood Potassium 3.6 Urine Color Urine Appearance Urine pH Ur Specific [place] Urine Protein Urine Glucose (UA) Urine Ketones Urine Blood Urine Nitrate Urine Bilirubin Urine Urobilinogen Ur Leukocyte Esterase Urine RBC Urine WBC Ur Epithelial Cells Urine Bacteria Influenza Typ A,B (EIA) Pos for influenza a H 03/24/18 23:15 WBC RBC Hgb Hct MCV MCH MCHC RDW Plt Count MPV Gran % Lymph % (Auto) [place] % (Auto) Eos % (Auto) Baso % (Auto) Gran # Lymph # (Auto) [place] # (Auto) Eos # (Auto) Baso # (Auto) PT INR APTT pO2 VBG pH VBG pCO2 VBG HCO3 VBG Total CO2 VBG O2 Sat (Calc) VBG Base Excess VBG Potassium Glucose Lactate FiO2 Sodium Potassium Chloride Carbon Dioxide Anion Gap BUN Creatinine Est GFR ( Amer) Est GFR (Non-Af Amer) Random Glucose Calcium Phosphorus Magnesium Total Bilirubin AST ALT Alkaline Phosphatase Lactate Dehydrogenase Total Creatine Kinase Troponin I Total Protein Albumin Globulin Albumin/Globulin Ratio Venous Blood Potassium Urine Color Yellow Urine Appearance Clear Urine pH 6.5 Ur Specific [place] 1.025 Urine Protein Trace H Urine Glucose (UA) Negative Urine Ketones Negative Urine Blood Trace-intact H Urine Nitrate Negative Urine Bilirubin Negative Urine Urobilinogen 0.2 Ur Leukocyte Esterase Negative Urine RBC 1 - 3 H Urine WBC 0 - 2 Ur Epithelial Cells 0 - 2 Urine Bacteria None Influenza Typ A,B (EIA) Assessment & Plan - Assessment and Plan (Free Text) Assessment: 78 M with PMHx CAD s/p CABG, Hydrocephalus, HTN, hypercholesterolemia who presented to the hospital s/p unwitnessed seizure, and for evaluation of fever. Plan Possible Seizure - Restart home oxcarbazepine; obtain oxcarbazepine level - TSH, A1C, Prolactin - Nursing swallow eval; seizure precautions, vitals q4 - Neuro consult: Dr. Gonzalez Fever - Septic workup: panculture, procalcitonin legionella ag urine, influenza - Azithro, Rocephin in ED; fluids Hx CAD - Restart home Lipitor, ASA, Lopressor Hx HLD - Restart home lipitor Hx Seizures - As first assessment Hx HTN - Restart home Norvasc Hx Constipation - Restart home COlace PRN PPX - Lovenox, Protonix
--- NOTE | 2018-03-25 07:50 | CT ---
Date of service: 03/24/2018 PROCEDURE: CT HEAD WITHOUT CONTRAST. HISTORY: Hx. seizures COMPARISON: CT 02/01/2018 TECHNIQUE: Axial computed tomography images were obtained through the head/brain without intravenous contrast. Radiation dose: Total exam DLP = 1561.0 mGy-cm. This CT exam was performed using one or more of the following dose reduction techniques: Automated exposure control, adjustment of the mA and/or kV according to patient size, and/or use of iterative reconstruction technique. FINDINGS: HEMORRHAGE: No intracranial hemorrhage. BRAIN: No mass effect or edema. There is moderate atrophy right greater than left. Microvascular changes are seen in the periventricular white matter VENTRICLES: Unremarkable. No hydrocephalus. CALVARIUM: Previous right frontal craniotomy PARANASAL SINUSES: Unremarkable as visualized. No significant inflammatory changes. MASTOID AIR CELLS: Unremarkable as visualized. No inflammatory changes. OTHER FINDINGS: The report concurs with the preliminary [facility] report IMPRESSION: No acute intracranial findings
[2018-03-25 08:17] LABS: BASO # 0.02 K/mm3 (0.0-2.0); BASO % 0.3 % (0.0-3.0); EOS # 0.2 (0.0-0.7); GRAN # 5.51 (1.4-6.5); GRAN % 69.7 % (50.0-68.0); HEMOGLOBIN 12.4 g/dL (14.0-18.0); LYMPH # 1.5 (1.2-3.4); LYMPH % 18.9 % (22.0-35.0); MEAN CELL VOLUME 84.3 fl (80.0-105.0); MEAN CORPUSCULAR HEMOGLOBIN 27.5 pg (25.0-35.0); MEAN CORPUSCULAR HGB CONC 32.6 g/dl (31.0-37.0); MEAN PLATELET VOLUME 8.8 fl (7.0-11.0); MONO # 0.7 (0.1-0.6); MONO % 9.1 % (1.0-6.0); RBC 4.51 10^6/uL (3.5-6.1); RED CELL DISTRIBUTION WIDTH 14.6 % (11.5-14.5); WHITE BLOOD COUNT 7.9 10^3/uL (4.5-11.0)
[2018-03-25 08:32] LABS: LDL CHOLESTEROL 91 mg/dL (0-129)
[2018-03-25 08:39] LABS: ALB/GLOB RATIO 1.4 (1.1-1.8); ALT/SGPT 43 U/L (7-56); AST/SGOT 36 U/L (17-59); BLOOD UREA NITROGEN 10 mg/dL (7-21); CALCIUM 8.6 mg/dL (8.4-10.5); GFR NON-AFRICAN AMERICAN > 60; HDL CHOLESTEROL 47 mg/dL (29-60)
--- NOTE | 2018-03-25 09:08 | RAD ---
Date of service: 03/24/2018 HISTORY: Sepsis Patient COMPARISON: 02/01/2018. FINDINGS: LUNGS: The lungs are well inflated. There is mild pulmonary venous congestion PLEURA: No pleural effusions or pneumothorax. CARDIOVASCULAR: There is mild cardiomegaly. Mass there are aortic atherosclerotic calcifications present. Status post CABG. S OSSEOUS STRUCTURES: Within normal limits for the patient's age. VISUALIZED UPPER ABDOMEN: Normal. OTHER FINDINGS: None. IMPRESSION: No active pulmonary disease.
[2018-03-25] MEDS: Aspirin 325 mg EC Tablets PO SCH (09:46)
[2018-03-25] MEDS: Enoxaparin 40 mg Syringe SC SCH (09:47)
--- NOTE | 2018-03-25 11:01 | CARD ---
APPROVED REPORT Date of service: 03/24/2018 EKG Measurement Heart [id number] <Conclusion> Normal sinus rhythm Normal ECG
--- NOTE | 2018-03-25 13:44 | CON ---
DATE: 03/25/2018 NEUROLOGY CONSULTATION CHIEF COMPLAINT: Questionable seizure. HISTORY OF PRESENT ILLNESS: A 78-year-old male with history of hydrocephalus, history of seizure, on Trileptal. He does not tolerate Keppra well. He had a questionable unwitnessed seizure while the at bedside. The patient has been wearing all day and has says that earlier he was shaking mostly shivering with loss of bladder control. Currently, he is A and O x3, following all commands, wearing mask. He is influenza type A positive indicating flu, currently placed on Tamiflu and replaced back on his home Trileptal. No acute events overnight. PAST MEDICAL HISTORY: History of coronary artery disease status post CABG, hydrocephalus, hypertension, hypercholesterolemia. PAST SURGICAL HISTORY: History of CABG. SOCIAL HISTORY: Former smoker, age 17. Drinks socially. Denies any illicit drug abuse. FAMILY HISTORY: Noncontributory. REVIEW OF SYSTEMS: A 14-point review of systems is negative except as per HPI. MEDICATIONS: Reviewed by nurses' reconciliation sheet.. LABORATORY DATA: Sodium is 137, potassium 3.8, chloride 102, carbon dioxide 27. BUN of 10, creatinine 0.7, random glucose 99. PHYSICAL EXAMINATION VITAL SIGNS: Temperature 99.7, pulse rate of 81, blood pressure 133/70, respiratory rate 20, oxygen saturation 98% on room air. GENERAL: The patient is seen up in the bed, in no acute distress. HEENT: Atraumatic, normocephalic. PERRLA. Extraocular muscles are intact. NECK: Supple. No JVD. No adenopathy noted. LUNGS: Decreased breath sounds bilaterally. HEART: S1, S2. Normal rate and rhythm. No murmurs, rubs, or gallops. ABDOMEN: Soft, nontender, nondistended. Bowel sounds present. EXTREMITIES: No clubbing, no cyanosis. Peripheral pulses are 2+ bilaterally. NEUROLOGIC: The patient is alert, oriented to person, place, month and year. Recall after 5 minutes is 0/3. Poor attention span. Slow thought process. Cranial nerves II through XII intact. Motor: Moves all extremities equally. Toes are downgoing bilaterally. Sensory: Light touch and pinprick, proprioception, and vibration are intact. DTRs are 2+ throughout, 1 at both the knees and ankles. Coordination: [id number] intact. No dysmetria noted. Gait is deferred for now. ASSESSMENT: A 78-year-old male with a history of coronary artery disease status post coronary artery bypass graft, hydrocephalus with a past a past history of seizures, on Trileptal, hypertension, hypercholesterolemia, presented to the hospital with generalized weakness, fever and questionable seizure-like episode which could be induced by the influenza type A given that he has a flu at this time. RECOMMENDATIONS: 1. Continue with Tamiflu for ongoing influenza type A. 2. Monitor electrolytes and correct accordingly. 3. Continue his Trileptal 600 mg p.o. b.i.d. for seizure prophylaxis and keep followup with his outpatient neurologist once again. If clinically stable, continue current and present medical management. John Gonzalez MD
[2018-03-25 21:05] VITALS: BMI 24.7
[2018-03-25] MEDS ORDERED: Influenza Vaccine 60 mcg/0.5 mL SYR (4YR UP) IM ONE (21:05)
[2018-03-25] MEDS ORDERED: Pneumococcal 23-Valent Vaccine IM ONE (21:05)
[2018-03-26 00:26] VITALS: RESP 20
[2018-03-26] MEDS: Potassium Chloride 30 MEQ in Sodium Chloride 0.9% 1,000 ML IV SCH ×2 (03:01→18:36)
[2018-03-26 06:38] LABS: BASO # 0.01 K/mm3 (0.0-2.0); BASO % 0.1 % (0.0-3.0); EOS # 0.3 (0.0-0.7); EOS % 4.5 % (1.5-5.0); GRAN # 4.24 (1.4-6.5); GRAN % 60.3 % (50.0-68.0); HEMOGLOBIN 12.3 g/dL (14.0-18.0); LYMPH # 1.8 (1.2-3.4); LYMPH % 25.3 % (22.0-35.0); MEAN CELL VOLUME 84.5 fl (80.0-105.0); MEAN CORPUSCULAR HEMOGLOBIN 27.6 pg (25.0-35.0); MEAN CORPUSCULAR HGB CONC 32.7 g/dl (31.0-37.0); MEAN PLATELET VOLUME 8.9 fl (7.0-11.0); MONO # 0.7 (0.1-0.6); MONO % 9.8 % (1.0-6.0); RBC 4.45 10^6/uL (3.5-6.1); RED CELL DISTRIBUTION WIDTH 14.4 % (11.5-14.5)
[2018-03-26 06:49] LABS: ALB/GLOB RATIO 1.3 (1.1-1.8); ALBUMIN 4.1 g/dL (3.0-4.8); ALT/SGPT 43 U/L (7-56); AST/SGOT 39 U/L (17-59); BLOOD UREA NITROGEN 9 mg/dL (7-21); CALCIUM 8.6 mg/dL (8.4-10.5); GFR NON-AFRICAN AMERICAN > 60
[2018-03-26] MEDS: Pantoprazole 40 mg EC Tab PO SCH (10:46)
[2018-03-26] MEDS: Aspirin 325 mg EC Tablets PO SCH (10:46)
[2018-03-26] MEDS: Enoxaparin 40 mg Syringe SC SCH (10:47)
--- NOTE | 2018-03-26 14:05 | CP.PCM.PN ---
<Suraj Muñoz - Last Filed: 03/26/18 14:17> Subjective - Date & Time of Evaluation Date of Evaluation: 03/26/18 Time of Evaluation: 07:00 - Subjective Subjective: Pt seen, examined this morning at bedside. Pt still reports cough. Objective - Vital Signs/Intake and Output Vital Signs (last 24 hours): Temp Pulse Resp BP Pulse Ox 98.4 F 90 20 149/81 96 03/26/18 07:00 03/26/18 07:00 03/26/18 07:00 03/26/18 07:00 03/26/18 07:00 Intake and Output: 03/26/18 03/26/18 06:59 18:59 Intake Total 700 Balance 700 - Medications Medications: Current Medications Amlodipine Besylate (Norvasc) 5 mg PO DAILY [facility] Last Admin: 03/26/18 10:46 Dose: 5 mg Aspirin (Ecotrin) 325 mg PO DAILY [facility] Last Admin: 03/26/18 10:46 Dose: 325 mg Atorvastatin Calcium (Lipitor) 10 mg PO DAILY [facility] Last Admin: 03/26/18 10:46 Dose: 10 mg Benzonatate (Tessalon Perles) 100 mg PO TID [facility] Last Admin: 03/26/18 10:46 Dose: 100 mg Docusate Sodium (Colace) 100 mg PO DAILY PRN PRN Reason: Constipation Enoxaparin Sodium (Lovenox) 40 mg SC DAILY [facility]; Protocol Last Admin: 03/26/18 10:47 Dose: 40 mg Potassium Chloride 30 meq/ (Sodium Chloride) 1,015 mls @ 100 mls/hr IV .Q10H9M [facility] Last Admin: 03/26/18 03:01 Dose: 100 mls/hr Metoprolol Tartrate (Lopressor) 25 mg PO DAILY [facility] Last Admin: 03/26/18 10:46 Dose: 25 mg Oseltamivir Phosphate (Tamiflu Cap) 75 mg PO BID [facility]; Protocol Stop: 03/29/18 18:01 Last Admin: 03/26/18 10:46 Dose: 75 mg Oxcarbazepine (Trileptal) 600 mg PO BID [facility]; Protocol Last Admin: 03/26/18 10:45 Dose: 600 mg Pantoprazole Sodium (Protonix Ec Tab) 40 mg PO ACB [facility] Last Admin: 03/26/18 10:46 Dose: 40 mg - Labs Labs: 03/26/18 06:10 03/26/18 06:10 PT 11.9 SECONDS (9.4-12.5) 03/24/18 20:50 INR 1.04 03/24/18 20:50 APTT 33.3 Seconds (25.1-36.5) 03/24/18 20:50 - Constitutional Appears: No Acute Distress - Head Exam Head Exam: ATRAUMATIC, NORMOCEPHALIC - Eye Exam Eye Exam: EOMI - ENT Exam ENT Exam: Mucous Membranes Moist - Neck Exam Neck Exam: Full ROM - Respiratory Exam Respiratory Exam: NORMAL BREATHING PATTERN. absent: Accessory Muscle Use, Respiratory Distress - Cardiovascular Exam Cardiovascular Exam: RRR, +S1, +S2. absent: Diastolic murmur, Murmur - GI/Abdominal Exam GI & Abdominal Exam: Soft, Normal Bowel Sounds - Extremities Exam Extremities Exam: Full ROM. absent: Pedal Edema - Neurological Exam Neurological Exam: Alert, Awake, Oriented x3 - Psychiatric Exam Psychiatric exam: Normal Affect, Normal Mood - Skin Skin Exam: Dry, Intact, Warm Assessment and Plan - Assessment and Plan (Free Text) Assessment: Pt is a 78yo male with a PMH of CAD s/p CABG, hydrocephalus, HTN, and HLD who presented to the hospital s/p an unwitnessed seizure. Plan: Unwitnessed Seizure vs Rigors - afebrile - continue trileptal - TSH 1.14 - HA1C 5.9 - Prolactin 8.1 - Trop negative x3 - continue seizure precautions - urine cultures, NGTD - blood cultures, NGTD - PT eval and treat - Neuro consulted, Dr Gonzalez rec continue Tamiflu and Trileptal 600mg BID CAD - lipitor - ASA - lopressor HTN - norvasc HLD - lipitor Constipation - colace PRN Ppx - protonix - lovenox Pt seen, examined, assessment and plan discussed with Dr Carmencita Muñoz PGY1, Internal Medicine Resident <Carmencita Manuel R - Last Filed: 03/28/18 15:56> Objective - Vital Signs/Intake and Output Vital Signs (last 24 hours): Temp Pulse Resp BP Pulse Ox 97.9 F 72 20 144/90 97 03/27/18 06:00 03/27/18 06:00 03/27/18 06:00 03/27/18 06:00 03/27/18 06:00 - Labs Labs: 03/27/18 05:30 03/27/18 05:30 PT 11.9 SECONDS (9.4-12.5) 03/24/18 20:50 INR 1.04 03/24/18 20:50 APTT 33.3 Seconds (25.1-36.5) 03/24/18 20:50 Attending/Attestation - Attestation I have personally seen and examined this patient.: Yes I have fully participated in the care of the patient.: Yes I have reviewed all pertinent clinical information, including history, physical exam and plan: Yes Notes (Text): Patient seen and examined by me with resident at 11:35AM on 03/26/18. Case including HPI, physical exam, and assessment and plan discussed with resident. Agree with above with following additions/corrections. Patient says 78-year-old male with past history significant for hydrocephalus, hypertension, coronary artery disease, hyperlipidemia, and seizures that presented to the emergency room with unwitnessed seizure as per . Patient states that he is feeling okay. States he is feeling weak. States he has a chronic cough that he has had since being a child. Patient denies chest pain or shortness of breath. Denies any nausea or vomiting. No abdominal pain. No headaches or dizziness. No lightheadedness. No fevers or chills. No dysuria. Physical exam: General: Awake and alert lying in bed in no acute distress. HEENT: Normocephalic, atraumatic. Extraocular muscles intact, pupils equal and reactive, no scleral icterus. Oropharynx is pink moist. Neck is supple. Cardiovascular: Regular rhythm. Normal S1 and S2. No murmurs, rubs, or gallops appreciated Pulmonary: Normal respiratory effort. Decreased breath sounds. No rhonchi, rales, or wheezing appreciated Gastrointestinal: Soft, nondistended. Nontender. Positive bowel sounds all 4 quadrants. No guarding. Musculoskeletal: Moves all extremities. No calf tenderness. No edema. Central nervous system: AAO x 3, CN 2-12 grossly intact. Dermatologic: Skin warm and dry. Assessment and plan: Patient says 78-year-old male with past history significant for hydrocephalus, hypertension, coronary artery disease, hyperlipidemia, and seizures that presented to the emergency room with unwitnessed seizure as per . 1. Fever. Influenza A. Continue tamiflu. Continue isolation. Patient afebrile now. no leukocytosis. 2. Weakness. Likely secondary to influenza. PT eval and treat. 3. Chronic cough. Placed on Tessalon Perles. Per patient he has had this since being a child and has had extensive workup. 4. Seizure disorder. Patient likely had febrile seizure. Neurology following, recommendations appreciated. Continue Trileptal per neurology. Patient will need to follow-up with his neurologist as an outpatient. 5. Hypertension. Continue Norvasc and Lopressor. 6. Coronary artery disease. No chest pain. No current issues. Continue aspirin, Lopressor, and Lipitor. 7. Hyperlipidemia. Continue Lipitor. 8. GI/DVT prophylaxis. Protonix/Lovenox 9. Patient is a full code. Case was discussed in detail with the patient and patient's at bedside regarding current diagnosis and treatment plan. All questions answered.
[2018-03-27] MEDS: Potassium Chloride 30 MEQ in Sodium Chloride 0.9% 1,000 ML IV SCH (04:25)
[2018-03-27 07:02] LABS: ALB/GLOB RATIO 1.2 (1.1-1.8); ALBUMIN 3.8 g/dL (3.0-4.8); ALT/SGPT 42 U/L (7-56); AST/SGOT 34 U/L (17-59); BLOOD UREA NITROGEN 9 mg/dL (7-21); CALCIUM 8.3 mg/dL (8.4-10.5); GFR NON-AFRICAN AMERICAN > 60
[2018-03-27 08:24] VITALS: BP 144/90; PULSE 72; TEMP 97.9; O2SAT 97
[2018-03-27 08:34] LABS: BASO # 0.01 K/mm3 (0.0-2.0); BASO % 0.3 % (0.0-3.0); EOS # 0.3 (0.0-0.7); EOS % 8.3 % (1.5-5.0); GRAN # 1.06 (1.4-6.5); GRAN % 31.4 % (50.0-68.0); HEMOGLOBIN 11.7 g/dL (14.0-18.0); LYMPH # 1.6 (1.2-3.4); LYMPH % 47.8 % (22.0-35.0); MEAN CELL VOLUME 83.6 fl (80.0-105.0); MEAN CORPUSCULAR HEMOGLOBIN 27.1 pg (25.0-35.0); MEAN CORPUSCULAR HGB CONC 32.4 g/dl (31.0-37.0); MONO # 0.4 (0.1-0.6); MONO % 12.2 % (1.0-6.0); RBC 4.32 10^6/uL (3.5-6.1); RED CELL DISTRIBUTION WIDTH 14.1 % (11.5-14.5); WHITE BLOOD COUNT 3.4 10^3/uL (4.5-11.0)
[2018-03-27] MEDS: Pantoprazole 40 mg EC Tab PO SCH (11:12)
[2018-03-27] MEDS: Aspirin 325 mg EC Tablets PO SCH (11:12)
[2018-03-27] MEDS: Enoxaparin 40 mg Syringe SC SCH (11:12)
--- NOTE | 2018-03-27 15:45 | CP.PCM.DIS ---
Provider - Provider Date of Admission: 03/24/18 22:30 Attending physician: Carmencita Manuel DO Primary care physician: Joyce Orellana MD Consults: 03/25/18 00:56 Neurology Consult Routine Comment: Consulting Provider: John Gonzalez Consulting Physician: John Gonzalez Reason for Consult: Possible s/p seizure - have seen in past 03/25/18 21:05 Inpatient [employer] Core Measures Referral Routine Comment: PNEUMONIA Physician Instructions: Reason For Exam: EVALUATION Transition In Care/Readmission Reduction Routine Comment: Physician Instructions: Reason For Exam: EVALUATION Time Spent in preparation of Discharge (in minutes): 35 Diagnosis - Discharge Diagnosis (1) Witnessed seizure Status: Acute Priority: High (2) CAD (coronary artery disease) Status: Chronic Priority: High (3) HTN (hypertension) Status: Chronic Priority: High (4) HLD (hyperlipidemia) Status: Chronic Priority: High Hospital Course - Lab Results Lab Results: Micro Results 03/24/18 21:30 Blood Blood Culture - Preliminary NO GROWTH AFTER 48 HOURS 03/24/18 20:50 Blood Blood Culture - Preliminary NO GROWTH AFTER 48 HOURS 03/24/18 23:15 Urine Random Urine Culture - Final No Growth (<1,000 CFU/ML) Most Recent Lab Values WBC 3.4 10^3/uL (4.5-11.0) L D 03/27/18 05:30 RBC 4.32 10^6/uL (3.5-6.1) 03/27/18 05:30 Hgb 11.7 g/dL (14.0-18.0) L 03/27/18 05:30 Hct 36.1 % (42.0-52.0) L 03/27/18 05:30 MCV 83.6 fl (80.0-105.0) 03/27/18 05:30 MCH 27.1 pg (25.0-35.0) 03/27/18 05:30 MCHC 32.4 g/dl (31.0-37.0) 03/27/18 05:30 RDW 14.1 % (11.5-14.5) 03/27/18 05:30 Plt Count 145 10^3/uL (120.0-450.0) 03/27/18 05:30 MPV 9.0 fl (7.0-11.0) 03/27/18 05:30 Gran % 31.4 % (50.0-68.0) L 03/27/18 05:30 Lymph % (Auto) 47.8 % (22.0-35.0) H 03/27/18 05:30 [place] % (Auto) 12.2 % (1.0-6.0) H 03/27/18 05:30 Eos % (Auto) 8.3 % (1.5-5.0) H 03/27/18 05:30 Baso % (Auto) 0.3 % (0.0-3.0) 03/27/18 05:30 Gran # 1.06 (1.4-6.5) L 03/27/18 05:30 Lymph # (Auto) 1.6 (1.2-3.4) 03/27/18 05:30 [place] # (Auto) 0.4 (0.1-0.6) 03/27/18 05:30 Eos # (Auto) 0.3 (0.0-0.7) 03/27/18 05:30 Baso # (Auto) 0.01 K/mm3 (0.0-2.0) 03/27/18 05:30 PT 11.9 SECONDS (9.4-12.5) 03/24/18 20:50 INR 1.04 03/24/18 20:50 APTT 33.3 Seconds (25.1-36.5) 03/24/18 20:50 pO2 102 mm/Hg (30-55) H 03/24/18 21:11 VBG pH 7.42 (7.32-7.43) 03/24/18 21:11 VBG pCO2 43.0 (40-60) 03/24/18 21:11 VBG HCO3 27.9 mmol/l (21-28) 03/24/18 21:11 VBG Total CO2 29.2 mmol.L (22-28) H 03/24/18 21:11 VBG O2 Sat (Calc) 99.4 % (40-65) H 03/24/18 21:11 VBG Base Excess 2.9 mmol/L (0.0-2.0) H 03/24/18 21:11 VBG Potassium 3.6 mmol/L (3.6-5.2) 03/24/18 21:11 Sodium 134.0 mmol/L (132-148) 03/24/18 21:11 Chloride 99.0 mmol/L (98-107) 03/24/18 21:11 Glucose 109 mg/dl (75-110) 03/24/18 21:11 Lactate 1.0 mmol/L (0.7-2.1) 03/24/18 21:11 FiO2 21.0 % 03/24/18 21:11 Sodium 134 mmol/L (132-148) 03/27/18 05:30 Potassium 3.9 mmol/L (3.6-5.0) 03/27/18 05:30 Chloride 101 mmol/L (98-107) 03/27/18 05:30 Carbon Dioxide 24 mmol/L (21-33) 03/27/18 05:30 Anion Gap 12 (10-20) 03/27/18 05:30 BUN 9 mg/dL (7-21) 03/27/18 05:30 Creatinine 0.6 mg/dl (0.8-1.5) L 03/27/18 05:30 Est GFR ( Amer) > 60 03/27/18 05:30 Est GFR (Non-Af Amer) > 60 03/27/18 05:30 Random Glucose 97 mg/dL (70-110) 03/27/18 05:30 Hemoglobin A1c 5.9 % (4.2-6.5) 03/25/18 07:30 Calcium 8.3 mg/dL (8.4-10.5) L 03/27/18 05:30 Phosphorus 3.7 mg/dL (2.5-4.5) 03/24/18 20:50 Magnesium 2.1 mg/dL (1.7-2.2) 03/24/18 20:50 Total Bilirubin 0.3 mg/dL (0.2-1.3) 03/27/18 05:30 AST 34 U/L (17-59) 03/27/18 05:30 ALT 42 U/L (7-56) 03/27/18 05:30 Alkaline Phosphatase 70 U/L (38-126) 03/27/18 05:30 Lactate Dehydrogenase 458 U/L (333-699) 03/24/18 20:50 Total Creatine Kinase 132 U/L (35-230) 03/24/18 20:50 Troponin I 0.02 ng/mL 03/25/18 20:00 Total Protein 6.9 g/dL (5.8-8.3) 03/27/18 05:30 Albumin 3.8 g/dL (3.0-4.8) 03/27/18 05:30 Globulin 3.1 gm/dL 03/27/18 05:30 Albumin/Globulin Ratio 1.2 (1.1-1.8) 03/27/18 05:30 Triglycerides 89 mg/dL (35-160) 03/25/18 07:30 Cholesterol 156 mg/dL (130-200) 03/25/18 07:30 LDL Cholesterol Direct 91 mg/dL (0-129) 03/25/18 07:30 HDL Cholesterol 47 mg/dL (29-60) 03/25/18 07:30 Procalcitonin < 0.05 NG/ML (0.19-0.49) L 03/24/18 20:50 TSH 3rd Generation 1.14 mIU/mL (0.46-4.68) 03/25/18 07:30 Prolactin 8.1 ng/mL (3.7-17.9) 03/24/18 20:50 Venous Blood Potassium 3.6 mmol/L (3.6-5.2) 03/24/18 21:11 Urine Color Yellow (YELLOW) 03/24/18 23:15 Urine Appearance Clear (CLEAR) 03/24/18 23:15 Urine pH 6.5 (4.7-8.0) 03/24/18 23:15 Ur Specific [place] 1.025 (1.005-1.035) 03/24/18 23:15 Urine Protein Trace mg/dL (<30 mg/dL) H 03/24/18 23:15 Urine Glucose (UA) Negative mg/dL (NEGATIVE) 03/24/18 23:15 Urine Ketones Negative mg/dL (NEGATIVE) 03/24/18 23:15 Urine Blood Trace-intact (NEGATIVE) H 03/24/18 23:15 Urine Nitrate Negative (NEGATIVE) 03/24/18 23:15 Urine Bilirubin Negative (NEGATIVE) 03/24/18 23:15 Urine Urobilinogen 0.2 E.U./dL (<1 E.U./dL) 03/24/18 23:15 Ur Leukocyte Esterase Negative Nurys/uL (NEGATIVE) 03/24/18 23:15 Urine RBC 1 - 3 /hpf (0-2) H 03/24/18 23:15 Urine WBC 0 - 2 /hpf (0-6) 03/24/18 23:15 Ur Epithelial Cells 0 - 2 /hpf (0-5) 03/24/18 23:15 Urine Bacteria None /hpf (NONE) 03/24/18 23:15 Influenza Typ A,B (EIA) Pos for influenza a (NEGATIVE) H 03/24/18 20:58 - Hospital Course Hospital Course: Upon Arrival Pt is a 78 yo male with a PMH for hydrocephalus and seizures presents s/p unwitnessed seizure with at bedside. Patient's states that he has been very sleepy all day and that he states that earlier in the day he started shaking as though he was having a seizure, with loss of bladder control. He states that he has also been coughing and has had a fever for the entire day, with clear sputum. Hospitalization Pt was seen by neurology, Dr Gonzalez, who increased the pt trileptal dose. Pt also tested positive for the Flu, he was treated with Tamiflu. Neurology states the flu likely induced the pt to have a seizure. Discharge Pt dose of trileptal was increased. Pt was recommended to continue Tamiflu. Pt was given a script for out pt physical therapy. - Date & Time of H&P Date of H&P: 03/27/18 Time of H&P: 07:00 Discharge Exam - Head Exam Head Exam: ATRAUMATIC, NORMOCEPHALIC - Eye Exam Eye Exam: EOMI - ENT Exam ENT Exam: Mucous Membranes Moist - Respiratory Exam Respiratory Exam: NORMAL BREATHING PATTERN, UNREMARKABLE. absent: Accessory Muscle Use, Respiratory Distress - Cardiovascular Exam Cardiovascular Exam: RRR, +S1, +S2. absent: Diastolic murmur, Systolic Murmur - GI/Abdominal Exam GI & Abdominal Exam: Normal Bowel Sounds - Neurological Exam Neurological exam: Alert, CN II-XII Intact, Oriented x3 - Psychiatric Exam Psychiatric exam: Normal Affect, Normal Mood - Skin Skin Exam: Dry, Intact, Warm Discharge Plan - Discharge Medications Prescriptions: Oseltamivir Cap [Tamiflu Cap] 75 mg PO BID #5 cap - Follow Up Plan Condition: STABLE Disposition: HOME/ ROUTINE Instructions: Dangers of Secondhand Smoke, Preventing Falls in the Older Adult, Pneumonia, Adult (DC), Seizures, Influenza Virus Vaccine (Live/Attenuated) Additional Instructions: outpatient PT as ordered. Referrals: Joyce Orellana MD [Primary Care Provider] -
== END 2018-03-27 17:29 | disposition home or self-care (01) | DRG 100 ==
LOC: ED 20:09 → ERH 22:24 → OBSVTOIN 22:30 → ERH 03-25 20:31 → 5RNO 03-25 23:20
PROVIDERS: ADMIT Hospitalist; ATTEND Hospitalist
DX: R56.9 Unspecified convulsions (principal); J10.00 Influenza due to other identified influenza virus with unspecified type of pneumonia; I10 Essential (primary) hypertension; I25.10 Atherosclerotic heart disease of native coronary artery without angina pectoris; E78.00 Pure hypercholesterolemia, unspecified; E78.5 Hyperlipidemia, unspecified; K59.00 Constipation, unspecified; Z86.69 Personal history of other diseases of the nervous system and sense organs; Z87.891 Personal history of nicotine dependence; Z95.1 Presence of aortocoronary bypass graft; Z79.82 Long term (current) use of aspirin

== ENCOUNTER 2018-07-29 19:33 | Emergency (ER) | payer MEDICARE, OTHER ==
[2018-07-29 19:34] VITALS: BMI 24.7
--- NOTE | 2018-07-29 20:38 | ED PDOC ---
Arrival/HPI - General Chief Complaint: Abnormal Labs Time Seen by Provider: 07/29/18 20:01 Historian: Patient, Spouse - History of Present Illness Narrative History of Present Illness (Text): 07/29/18 20:31 Iam Mckeon is a 78 year old male, whose past medical history includes CAD s/p CABG, hydrocephalus, seizures, hypertension, and hyperlipidemia, who presents to the Emergency department accompanied by for abnormal labs. As per , patient recently had labwork performed, which showed patient had low sodium. Patient was advised to go to the ED by his neurologist. Patient currently complaining of a headache. Patient denies any fever, chills, chest pain, shortness of breath, nausea, vomiting, diarrhea, urinary symptoms, back pain, neck pain, dizziness, or any other complaints. Symptom Onset: Gradual Symptom Course: Unchanged Activities at Onset: Light Context: Home Past Medical History - Provider Review Nursing Documentation Reviewed: Yes - Past History Past History: No Previous - Infectious Disease Hx of Infectious Diseases: None - Cardiac Hx Cardiac Disorders: Yes (CAD s/p CABG) Hx Hypertension: Yes - Pulmonary Hx Respiratory Disorders: No Hx Pneumonia: Yes (03-25-18) - Neurological Hx Neurological Disorder: Yes Hx Seizures: Yes (MULTIPLE) Other/Comment: hydrocephalus. 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 Left knee surgery - Anesthesia Hx Anesthesia: Yes Family/Social History - Physician Review Nursing Documentation Reviewed: Yes Family/Social History: Unknown Family HX Smoking Status: Former Smoker Hx Alcohol Use: No Hx Substance Use: No Hx Substance Use Treatment: No Allergies/Home Meds Allergies/Adverse Reactions: Allergies No Known Allergies Allergy (Verified 07/29/18 19:55) Home Medications: Home Meds Medication Instructions Recorded Confirmed Aspirin [Aspirin EC] 325 mg PO DAILY 09/13/16 03/25/18 Atorvastatin [Lipitor] 10 mg PO DAILY 09/13/16 03/25/18 Metoprolol Tartrate [Lopressor] 25 mg PO DAILY 09/13/16 03/25/18 Oxcarbazepine [Trileptal] 600 mg PO BID 09/13/16 03/25/18 amLODIPine [Norvasc] 5 mg PO DAILY 09/13/16 03/25/18 Docusate [Colace] 1 cap PO PRN PRN 02/01/18 03/25/18 Review of Systems - Physician Review All systems were reviewed & negative as marked: Yes - Review of Systems Constitutional: Normal. absent: Fevers Eyes: Normal ENT: Normal Respiratory: Normal. absent: SOB, Cough Cardiovascular: Normal. absent: Chest Pain Gastrointestinal: Normal. absent: Abdominal Pain, Diarrhea, Nausea, Vomiting Genitourinary Male: Normal. absent: Dysuria, Frequency, Hematuria, Urinary Output Changes Musculoskeletal: Normal. absent: Back Pain, Neck Pain Skin: Normal. absent: Rash Neurological: Headache. absent: Dizziness Endocrine: Normal Hemo/Lymphatic: Normal Psychiatric: Normal Physical Exam Vital Signs Reviewed: Yes Temperature: Afebrile Blood Pressure: Hypertensive Pulse: Regular Respiratory Rate: Normal Appearance: Positive for: Well-Appearing, Non-Toxic, Comfortable Pain Distress: None Mental Status: Positive for: Alert and Oriented X 3 - Systems Exam Head: Present: Atraumatic, Normocephalic Pupils: Present: PERRL Extroacular Muscles: Present: EOMI Conjunctiva: Present: Normal Mouth: Present: Moist Mucous Membranes Neck: Present: Normal Range of Motion Respiratory/Chest: Present: Clear to Auscultation, Good Air Exchange. No: Respiratory Distress, Accessory Muscle Use Cardiovascular: Present: Regular Rate and Rhythm, Normal S1, S2. No: Murmurs Abdomen: No: Tenderness, Distention, Peritoneal Signs Back: Present: Normal Inspection Upper Extremity: Present: Normal Inspection. No: Cyanosis, Edema Lower Extremity: Present: Normal Inspection. No: Edema Neurological: Present: GCS=15, CN II-XII Intact, Speech Normal Skin: Present: Warm, Dry, Normal Color. No: Rashes Psychiatric: Present: Alert, Oriented x 3, Normal Insight, Normal Concentration Medical Decision Making ED Course and Treatment: 07/29/18 20:31 Impression: 78 year old male sent for abnormal labs (low sodium). Plan: -- Labs -- UA -- Reassess and disposition Prior Visits: Notes and results from previous visits were reviewed. Progress Notes: 07/29/18 22:20 Labs reviewed, sodium level within normal limits. Labs grossly unremarkable. On re-evaluation, patient feels better and is in no acute distress. I have discussed the results and plan with the patient, who expresses understanding. Patient in agreement with plan to be discharged home. Patient is stable for discharge. Patient was instructed to follow up with physician or return if symptoms worsen or new concerning symptoms arise. - Scribe Statement The provider has reviewed the documentation as recorded by the Vipin Blank Provider Scribe Attestation: All medical record entries made by the Scribe were at my direction and pers onally dictated by me. I have reviewed the chart and agree that the record accurately reflects my personal performance of the history, physical exam, medical decision making, and the department course for this patient. I have also personally directed, reviewed, and agree with the discharge instructions and disposition. Disposition/Present on Arrival - Present on Arrival Any Indicators Present on Arrival: No History of DVT/PE: No History of Uncontrolled Diabetes: No Urinary Catheter: No History of Decub. Ulcer: No History Surgical Site Infection Following: None - Disposition Have Diagnosis and Disposition been Completed?: Yes Diagnosis: Laboratory test Disposition: HOME/ ROUTINE Disposition Time: 22:20 Condition: STABLE Additional Instructions: follow up with pmd Referrals: Joyce Orellana MD [Primary Care Provider] - Follow up with primary Forms: [employer] (Polish)
[2018-07-29 21:14] VITALS: PULSE 59; RESP 16; TEMP 98.4
[2018-07-29 21:22] LABS: BASO # 0.01 K/mm3 (0.0-2.0); BASO % 0.1 % (0.0-3.0); EOS # 0.4 (0.0-0.7); EOS % 5.9 % (1.5-5.0); HEMOGLOBIN 13.4 g/dL (14.0-18.0); LYMPH % 28.4 % (22.0-35.0); MEAN CELL VOLUME 84.2 fl (80.0-105.0); MEAN CORPUSCULAR HEMOGLOBIN 28.2 pg (25.0-35.0); MEAN CORPUSCULAR HGB CONC 33.5 g/dl (31.0-37.0); MEAN PLATELET VOLUME 8.4 fl (7.0-11.0); MONO # 0.5 (0.1-0.6); RBC 4.75 10^6/uL (3.5-6.1); RED CELL DISTRIBUTION WIDTH 13.7 % (11.5-14.5)
[2018-07-29 21:32] LABS: ALB/GLOB RATIO 1.5 (1.1-1.8); ALBUMIN 4.9 g/dL (3.0-4.8); ALT/SGPT 32 U/L (7-56); AST/SGOT 29 U/L (17-59); BLOOD UREA NITROGEN 14 mg/dL (7-21); CALCIUM 9.1 mg/dL (8.4-10.5); GFR NON-AFRICAN AMERICAN > 60
[2018-07-29 21:33] LABS: PH,URINE 7.5 (4.7-8.0); URINE BILIRUBIN NEGATIVE (NEGATIVE); URINE BLOOD TRACE-INTACT (NEGATIVE); URINE GLUCOSE (UA) NEGATIVE (NEGATIVE); URINE LEUKOCYTE ESTERASE NEGATIVE Leu/uL (NEGATIVE); URINE PROTEIN 30 mg/dL (<30 mg/dL); URINE UROBILINOGEN 0.2 E.U./dL (<1 E.U./dL)
[2018-07-29 21:34] LABS: URINE APPEARANCE CLEAR (CLEAR); URINE COLOR LIGHT YELLOW (YELLOW)
[2018-07-29 21:36] LABS: URINE RBC 0 - 2 /hpf (0-2)
[2018-07-29 21:59] VITALS: BP 164/89; O2SAT 99
== END 2018-07-29 22:20 | disposition home or self-care (01) ==
LOC: ED 19:33
DX: Z00.00 Encounter for general adult medical examination without abnormal findings (principal); E78.5 Hyperlipidemia, unspecified; I10 Essential (primary) hypertension; I25.10 Atherosclerotic heart disease of native coronary artery without angina pectoris; Z95.1 Presence of aortocoronary bypass graft; R56.9 Unspecified convulsions; Z87.891 Personal history of nicotine dependence

== ENCOUNTER 2018-08-07 20:34 | Emergency (ER) | payer MEDICARE, OTHER ==
[2018-08-07 20:34] VITALS: BMI 24.7
--- NOTE | 2018-08-07 20:48 | ED PDOC ---
Arrival/HPI - General Historian: Patient - History of Present Illness Narrative History of Present Illness (Text): 08/07/18 20:48 Patient is a 78 yo male with CAD s/p CABG, h/o NPH, seizures, hypertension, and hyperlipidemia who presents after a fall. Patient states he was in the shower and slipped on water. He fell backward hitting the back of his head on the bathtub. He was able to stand up on his own and walk afterwards. He denies any LOC. He denies vision changes, dizziness, nausea, vomiting. He denies incontinence. He denies any abrasions or bleeding. He has 6/10 pain severity on the right side of the back of his head. He says overall currently he feels generalized weakness. He denies any symptoms prior to the fall. He denies being on anticoagulation. Time/Duration: 1 hour Severity Level: 6 <Linda Vera - Last Filed: 08/07/18 23:00> <Ariel Farris - Last Filed: 08/08/18 05:30> - General Chief Complaint: Trauma Time Seen by Provider: 08/07/18 20:38 Past Medical History - Provider Review Nursing Documentation Reviewed: Yes - Past History Past History: No Previous - Infectious Disease Hx of Infectious Diseases: None - Cardiac Hx Cardiac Disorders: Yes (CAD s/p CABG) Hx Hypertension: Yes - Pulmonary Hx Respiratory Disorders: No Hx Pneumonia: Yes (03-25-) - Neurological Hx Neurological Disorder: Yes Hx Seizures: Yes (MULTIPLE) Other/Comment: hydrocephalus. 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 Left knee surgery - Anesthesia Hx Anesthesia: Yes <Linda Vera - Last Filed: 08/07/18 23:00> Family/Social History - Physician Review Nursing Documentation Reviewed: Yes Family/Social History: Unknown Family HX Smoking Status: Former Smoker Hx Alcohol Use: No Hx Substance Use: No Hx Substance Use Treatment: No <Linda Vera - Last Filed: 08/07/18 23:00> Allergies/Home Meds <Linda Vera - Last Filed: 08/07/18 23:00> <Ariel Farris - Last Filed: 08/08/18 05:30> Allergies/Adverse Reactions: Allergies No Known Allergies Allergy (Verified 08/07/18 20:39) Home Medications: Home Meds Medication Instructions Recorded Confirmed Aspirin [Aspirin EC] 325 mg PO DAILY 09/13/16 08/07/18 Atorvastatin [Lipitor] 10 mg PO DAILY 09/13/16 08/07/18 Metoprolol Tartrate [Lopressor] 25 mg PO DAILY 09/13/16 08/07/18 Oxcarbazepine [Trileptal] 600 mg PO BID 09/13/16 08/07/18 amLODIPine [Norvasc] 5 mg PO DAILY 09/13/16 08/07/18 Docusate [Colace] 1 cap PO PRN PRN 02/01/18 08/07/18 Review of Systems - Review of Systems Constitutional: absent: Fatigue, Fevers Eyes: absent: Vision Changes, Eye Pain ENT: absent: Hearing Changes, Tinnitus Respiratory: absent: SOB, Cough Cardiovascular: absent: Chest Pain, Palpitations Gastrointestinal: absent: Abdominal Pain, Nausea, Vomiting Genitourinary Male: absent: Dysuria, Hematuria Musculoskeletal: absent: Neck Pain Skin: absent: Skin Lesions, Laceration <Linda Vera - Last Filed: 08/07/18 23:00> Physical Exam Vital Signs Temp Pulse Resp BP Pulse Ox 08/07/18 22:44 58 L 16 144/81 97 08/07/18 20:37 98.1 F 62 16 159/87 H 99 <Ariel Farris - Last Filed: 08/08/18 05:30> Medical Decision Making ED Course and Treatment: 08/07/18 20:48 CT head 08/07/18 22:59 Re-examined patient. He is feeling better. Expalined to patient and CT was negative for acute findings. Patient is agreeable with discharge home. - RAD Interpretation Bell Valet: Radiologist <Linda Vera - Last Filed: 08/07/18 23:00> - RAD Interpretation Narrative RAD Interpretations (Text): 08/07/18 22:58 CT Head Without IV contrast CLINICAL HISTORY: S/P FALL - R/O ICH AND FX TECHNIQUE: Axial computed tomography images of the head/brain without intravenous contrast. COMPARISON: Images from prior CT brain examination dated 03/24/2018 are not available for comparison; however, the report was reviewed. FINDINGS: BRAIN: No acute intraparenchymal hemorrhage. No mass lesion. No CT evidence for acute territorial infarct. No midline shift or extra-axial collections. There is moderate diffuse cerebral and cerebellar atrophy noted. There are bilateral confluent periventricular and subcortical white matter hypolucencies compatible with moderate chronic microvascular disease. VENTRICLES: There is some compensatory ventricular dilatation present. ORBITS: The orbits are unremarkable. SINUSES AND MASTOIDS: Mucoperiosteal thickening is seen in the left sphenoid sinus compatible with chronic sinusitis. The remaining visualized portions of the paranasal sinuses and mastoid air cells are clear. BONES: No fracture. A right frontal parietal craniotomy is noted. SOFT TISSUES: Unremarkable. IMPRESSION: 1. No acute intracranial abnormality. 2. Moderate diffuse cerebral atrophy with compensatory ventricular dilatation noted. 3. Moderate chronic microvascular disease. 4. Right frontal parietal craniotomy defect. 5. Evidence of sphenoid chronic sinusitis. Radiology Orders: 08/07/18 20:48 HEAD W/O CONTRAST [CT] Stat Bell Valet: Radiologist <Ariel Farris - Last Filed: 08/08/18 05:30> - PA / BUS ATTENDANT / Resident Statement LIZZIE has reviewed & agrees with the documentation as recorded. / has examined the patient and agrees with the treatment plan. <Ariel Farris - Last Filed: 08/08/18 05:30> Disposition/Present on Arrival - Present on Arrival Any Indicators Present on Arrival: No History of DVT/PE: No History of Uncontrolled Diabetes: No Urinary Catheter: No History of Decub. Ulcer: No History Surgical Site Infection Following: None - Disposition Have Diagnosis and Disposition been Completed?: Yes Disposition Time: 23:00 Patient Plan: Discharge <Linda Vera - Last Filed: 08/07/18 23:00> <Ariel Farris - Last Filed: 08/08/18 05:30> - Disposition Diagnosis: Fall Disposition: HOME/ ROUTINE Condition: GOOD Discharge Instructions (ExitCare): Preventing Falls in the Older Adult, Minor Head Injury (DC) Additional Instructions: SHARI LEWIS, thank you for letting us take care of you today. The emergency medical care you received today was directed at your acute symptoms. If you were prescribed any medication, please fill it and take as directed. It may take several days for your symptoms to resolve. Return to the Emergency Department if your symptoms worsen, do not improve, or if you have any other problems. Please contact your doctor or call one of the physicians/clinics you have been referred to that are listed on the Patient Visit Information form that is included in your discharge packet. Bring any paperwork you were given at discharge with you along with any medications you are taking to your follow up visit. Our treatment cannot replace ongoing medical care by a primary care provider outside of the emergency department. Thank you for allowing the [facility] team to be part of your care today. Follow up with your primary care doctor in 2-3 days for re-evaluation and further management. Referrals: [facility], [Non-Staff] - Follow up with primary Forms: [employer] - Smartphone RFID (Slovenian)
[2018-08-07 20:52] VITALS: RESP 16; TEMP 98.1
[2018-08-07 22:45] VITALS: BP 144/81; PULSE 58; O2SAT 97
--- NOTE | 2018-08-08 08:27 | CT ---
Date of service: 08/07/2018 PROCEDURE: CT HEAD WITHOUT CONTRAST. HISTORY: s/p fall - r/o ICH and fx COMPARISON: 03/24/2018 TECHNIQUE: Axial computed tomography images were obtained through the head/brain without intravenous contrast. Radiation dose: Total exam DLP = 929.84 mGy-cm. This CT exam was performed using one or more of the following dose reduction techniques: Automated exposure control, adjustment of the mA and/or kV according to patient size, and/or use of iterative reconstruction technique. FINDINGS: HEMORRHAGE: No intracranial hemorrhage. BRAIN: There are moderate chronic microangiopathic changes. There is no mass, mass effect or abnormal extra-axial fluid collection. There is no territorial infarction. The midline sagittal structures are normal.There are coarse atherosclerotic calcifications in the cavernous carotid arteries. VENTRICLES: There is moderate age-related global parenchymal volume loss and proportionate enlargement of the ventricles and cortical sulci. CALVARIUM: Again seen are postsurgical changes of right frontal craniotomy. There is an old deformity in the left lamina papyracea PARANASAL SINUSES: There is mucosal thickening and fluid in the left sphenoid chamber. The remaining visualized paranasal sinuses are predominantly clear. MASTOID AIR CELLS: Predominantly clear. OTHER FINDINGS: None. IMPRESSION: No acute intracranial abnormality. Moderate chronic microangiopathic changes and moderate age-related global parenchymal volume loss. Mucosal thickening and fluid in the sphenoid chamber could represent acute and/or chronic sinusitis in the appropriate clinical setting. A preliminary report was provided by [facility].
== END 2018-08-07 23:11 | disposition home or self-care (01) ==
LOC: ED 20:34
DX: Z04.3 Encounter for examination and observation following other accident (principal); W18.2XXA Fall in (into) shower or empty bathtub, initial encounter; Y93.E1 Activity, personal bathing and showering; Y92.002 Bathroom of unspecified non-institutional (private) residence as the place of occurrence of the external cause